=== PATIENT | female | born 1955 | race African-American/Black ===

== ENCOUNTER 2019-02-20 11:12 | Inpatient (IN) ==
[2019-02-20 11:51] LABS: Basophils % 0.6 % (0.0-0.8); Eosinophils # 0.1 10*3/uL (0.0-0.87); Eosinophils % 1.1 % (0.00-10.9); Hematocrit 28.6 VOL% (35.7-47.0); Hemoglobin 8.7 GM/DL (12.0-16.0); Immature Granulocytes % 0.4 %; Immature Granulocytes Absolute 0.02 #; Lymphocytes % 20.2 % (21.3-54.2); Mean Corpuscular HGB Conc 30.4 GM/DL (32-36); Mean Corpuscular Volume 77.7 FL (87-102); Mean Platelet Volume 9.8 FL (9.6-12.0); Monocytes % 18.1 % (1.7-12.7); Neutrophils % 59.6 % (38.7-73.9); Platelet Count 237 T/CUMM (130-400); Red Blood Count 3.68 MC/CUMM (3.8-5.5); Red Cell Distribution Width 20.5 % (9.3-17.3); White Blood Count 4.8 T/CUMM (4-12)
[2019-02-20 11:59] LABS: INR 1.2; PT Patient Result 12.9 SECS (9.6-12.2)
[2019-02-20 12:14] LABS: Band Neutrophils 3 % (0-10); Eosinophils 3 % (0-10); Lymphocytes 20 % (20-55); Segmented Neutrophils 52 % (50-85); Total Cells Counted 100
[2019-02-20 12:15] LABS: Anisocytosis 1+; Hypochromasia 1+; Platelet Estimate Normal; Polychromasia Slight
[2019-02-20 12:29] LABS: Albumin 2.3 G/DL (3.4-5.0); Bilirubin,Total 0.6 MG/DL (0.2-1.0); Calcium 8.1 MG/DL (8.5-10.1); Total Protein 8.6 G/DL (6.4-8.3)
[2019-02-20] MEDS ORDERED: FUROSEMIDE 100 MG/10 ML VIAL IV STA (12:47)
[2019-02-20] MEDS ORDERED: DEXTROSE 10% 25 GM/250 ML BAG IV PRN (15:52)
[2019-02-20] MEDS ORDERED: GLUCAGON 1 MG VIAL IM PRN (15:52)
[2019-02-20] MEDS: INSULIN REGULAR 100 UNIT/ML SUBCUT SCH ×2 (17:59→20:15)
[2019-02-20] MEDS: ENOXAPARIN 40 MG/0.4 ML SYRINGE SUBCUT SCH (20:15)
[2019-02-20] MEDS: LATANOPROST 0.005% OPH SOLN 2.5 ML BOTTLE BOTH EYES SCH (20:18)
[2019-02-20] MEDS ORDERED: FUROSEMIDE 20 MG/2 ML VIAL IV SCH (21:00)
[2019-02-21 05:44] LABS: Basophils % 0.4 % (0.0-0.8); Eosinophils # 0.1 10*3/uL (0.0-0.87); Eosinophils % 2.1 % (0.00-10.9); Hematocrit 29.2 VOL% (35.7-47.0); Hemoglobin 8.6 GM/DL (12.0-16.0); Immature Granulocytes % 0.4 %; Immature Granulocytes Absolute 0.02 #; Lymphocytes # 0.9 10*3/uL (1.4-4.0); Lymphocytes % 15.7 % (21.3-54.2); Mean Corpuscular HGB Conc 29.5 GM/DL (32-36); Mean Platelet Volume 10.1 FL (9.6-12.0); Monocytes % 14.8 % (1.7-12.7); Neutrophils % 66.6 % (38.7-73.9); Platelet Count 222 T/CUMM (130-400); Red Blood Count 3.79 MC/CUMM (3.8-5.5); Red Cell Distribution Width 19.9 % (9.3-17.3); White Blood Count 5.6 T/CUMM (4-12)
[2019-02-21 06:21] LABS: Albumin 2.4 G/DL (3.4-5.0); Bilirubin,Total 0.7 MG/DL (0.2-1.0); Calcium 8.9 MG/DL (8.5-10.1); Osmolality,Calculated 273.7 MOS/KG (273-304)
[2019-02-21] MEDS ORDERED: NON-FORMULARY MEDICATION (Glimepiride 1 MG) PO SCH (08:00)
[2019-02-21] MEDS: INSULIN REGULAR 100 UNIT/ML SUBCUT SCH ×4 (08:24→20:11)
[2019-02-21] MEDS: CARVEDILOL 12.5 MG TABLET PO SCH ×2 (08:59→17:17)
[2019-02-21] MEDS: PANTOPRAZOLE 40 MG TABLET PO SCH (08:59)
[2019-02-21] MEDS ORDERED: CARVEDILOL 6.25 MG TABLET PO SCH (09:00)
[2019-02-21] MEDS ORDERED: TOFACITINIB 11 MG PO SCH (09:00)
[2019-02-21] MEDS ORDERED: CARVEDILOL 25 MG TABLET PO SCH (09:00)
[2019-02-21] MEDS: FUROSEMIDE 20 MG/2 ML VIAL IV SCH (11:20)
[2019-02-21] MEDS: ENOXAPARIN 40 MG/0.4 ML SYRINGE SUBCUT SCH (20:32)
[2019-02-21] MEDS: LATANOPROST 0.005% OPH SOLN 2.5 ML BOTTLE BOTH EYES SCH (20:33)
[2019-02-22 05:14] LABS: Basophils % 0.2 % (0.0-0.8); Eosinophils # 0.2 10*3/uL (0.0-0.87); Eosinophils % 3.4 % (0.00-10.9); Hematocrit 29.6 VOL% (35.7-47.0); Hemoglobin 8.7 GM/DL (12.0-16.0); Immature Granulocytes % 0.2 %; Immature Granulocytes Absolute 0.01 #; Lymphocytes # 1.2 10*3/uL (1.4-4.0); Lymphocytes % 26.4 % (21.3-54.2); Mean Corpuscular HGB Conc 29.4 GM/DL (32-36); Mean Corpuscular Volume 78.1 FL (87-102); Mean Platelet Volume 10.3 FL (9.6-12.0); Monocytes % 18.6 % (1.7-12.7); NRBC # 0.02 10*3/uL; Neutrophils % 51.2 % (38.7-73.9); Platelet Count 216 T/CUMM (130-400); Red Blood Count 3.79 MC/CUMM (3.8-5.5); Red Cell Distribution Width 19.9 % (9.3-17.3); White Blood Count 4.4 T/CUMM (4-12)
[2019-02-22 05:38] LABS: Albumin 2.4 G/DL (3.4-5.0); Bilirubin,Total 0.8 MG/DL (0.2-1.0); Calcium 8.7 MG/DL (8.5-10.1); Total Protein 9.2 G/DL (6.4-8.3)
[2019-02-22 05:39] LABS: Eosinophils 5 % (0-10); Hypochromasia 1+; Lymphocytes 20 % (20-55); Platelet Estimate Adequate; Segmented Neutrophils 56 % (50-85); Target Cells Few; Total Cells Counted 100
[2019-02-22] MEDS: INSULIN REGULAR 100 UNIT/ML SUBCUT SCH ×2 (07:16→12:02)
[2019-02-22] MEDS: CARVEDILOL 12.5 MG TABLET PO SCH (08:22)
[2019-02-22] MEDS: PANTOPRAZOLE 40 MG TABLET PO SCH (08:22)
[2019-02-22] MEDS: FUROSEMIDE 20 MG/2 ML VIAL IV SCH (08:22)
[2019-02-22 11:48] VITALS: BP 131/78
== END 2019-02-22 15:07 | disposition home or self-care (01) | DRG 292 ==
LOC: EDBD → EDUNIT# → N.ED 11:12 → N.EDINP 11:12 → SUPCPDRO 14:41 → SUATTDRO 14:41 → OBSVTOIN 14:41 → N.2W 16:20 → N.4E 18:08
PROVIDERS: ADMIT Internal Medicine; ATTEND Emergency Medicine

== ENCOUNTER 2019-03-03 10:01 | Inpatient (IN) ==
[2019-03-03] MEDS ORDERED: FUROSEMIDE 100 MG/10 ML VIAL IV STA (10:59)
[2019-03-03 11:39] LABS: Basophils % 0.2 % (0.0-0.8); Eosinophils # 0.1 10*3/uL (0.0-0.87); Eosinophils % 1.5 % (0.00-10.9); Hematocrit 30.3 VOL% (35.7-47.0); Immature Granulocytes % 0.4 %; Immature Granulocytes Absolute 0.02 #; Lymphocytes # 0.4 10*3/uL (1.4-4.0); Lymphocytes % 8.6 % (21.3-54.2); Mean Corpuscular HGB Conc 29.7 GM/DL (32-36); Mean Corpuscular Volume 79.1 FL (87-102); Mean Platelet Volume 10.5 FL (9.6-12.0); NRBC # 0.04 10*3/uL; Neutrophils % 77.3 % (38.7-73.9); Platelet Count 213 T/CUMM (130-400); Red Blood Count 3.83 MC/CUMM (3.8-5.5); Red Cell Distribution Width 21.2 % (9.3-17.3); White Blood Count 4.7 T/CUMM (4-12)
[2019-03-03 11:48] LABS: INR 1.1; Partial Thromboplastin Time 24.6 SECS (20.8-36.0)
[2019-03-03 11:54] LABS: ABG Base Excess 4.6 MMOL/L (-2.5-2.5); ABG HCO3 28.6 MMOL/L (20-26); ABG Oxygen Saturation 99.9 % (95-100); ABG PH 7.222 (7.35-7.45); ABG TCO2 32.6 MMOL/L (23-27)
[2019-03-03 11:56] LABS: ABG PCO2 84.3 MM HG (35-48)
[2019-03-03 11:58] LABS: Albumin 2.4 G/DL (3.4-5.0); Bilirubin,Total 0.5 MG/DL (0.2-1.0); Calcium 8.4 MG/DL (8.5-10.1); Osmolality,Calculated 272.1 MOS/KG (273-304); Total Protein 8.6 G/DL (6.4-8.3)
[2019-03-03] MEDS: ALBUTEROL 2.5 MG/3 ML NEB RESP TX SCH ×3 (12:02→12:14)
[2019-03-03 12:13] LABS: Apearance,Urine CLEAR (Clear); Bilirubin,Urine Negative (Negative); Blood, Urine Negative (Negative); Glucose,Urine (UA) Negative (Negative); Hyaline Casts,Urine 4 /LPF (0-3); Ketones,Urine Negative (Negative); Mucus,Urine Occasional /LPF (Occasional); Nitrite,Urine Negative (Negative); Protein,Urine 100 MG/DL; RBC,Urine <1 /HPF (0-4); Squamous Epithelial Cell,Urine Occasional /HPF (0-10); Urine Color Yellow (Yellow); Urine Specific Gravity 1.014 (1.001-1.035)
[2019-03-03 12:32] LABS: Barbiturates Screen,Urine Negative (Negative); Benzodiazepines Screen,Urine Negative (Negative); Cannabinoid Screen,Urine Negative (Negative); Opiate Screen,Urine Negative (Negative); Phencyclidine Screen,Urine Negative (Negative)
[2019-03-03] MEDS ORDERED: ACETAMINOPHEN 325 MG TABLET PO PRN (13:45)
[2019-03-03] MEDS ORDERED: MAGNESIUM SULF RIDER 2 GM in PREMIX 1 EACH IV PRN (13:45)
[2019-03-03] MEDS ORDERED: ONDANSETRON 4 MG/2 ML VIAL IV PRN (13:45)
[2019-03-03] MEDS ORDERED: MAGNESIUM SULF RIDER 4 GM in PREMIX 1 EACH IV PRN (13:45)
[2019-03-03] MEDS ORDERED: PANTOPRAZOLE 40 MG TABLET PO SCH (14:00)
[2019-03-03] MEDS ORDERED: carvediloL 3.125 MG TABLET PO SCH (14:00)
[2019-03-03] MEDS ORDERED: GLUCAGON 1 MG VIAL IM PRN (14:31)
[2019-03-03] MEDS: SPIRONOLACTONE 25 MG TABLET PO SCH ×2 (14:54→21:20)
[2019-03-03] MEDS: ASPIRIN CHEW 81 MG TABLET PO SCH (14:56)
[2019-03-03] MEDS: ENOXAPARIN 40 MG/0.4 ML SYRINGE SUBCUT SCH (14:57)
[2019-03-03] MEDS: FUROSEMIDE 40 MG/4 ML VIAL IV SCH ×2 (14:57→21:18)
[2019-03-03] MEDS ORDERED: ETOMIDATE 20 MG/10 ML VIAL IV ONE ×3 (15:46→15:59)
[2019-03-03] MEDS ORDERED: SUCCINYLCHOLINE 200 MG/10 ML VIAL ONE (15:47)
[2019-03-03] MEDS ORDERED: MIDAZOLAM 100 MG in SODIUM CHLORIDE 0.9% 80 ML IV PRN (16:21)
[2019-03-03] MEDS ORDERED: INSULIN REGULAR 100 UNIT/ML SUBCUT SCH (16:30)
[2019-03-03] MEDS ORDERED: NOREPINEPHRINE 8 MG in SODIUM CHLORIDE 0.9% 242 ML IV PRN (16:33)
[2019-03-03] MEDS: PROPOFOL 1,000 MG/100 ML BOTTLE IV SCH ×3 (16:35→21:15)
[2019-03-03 18:20] LABS: ABG Base Excess 11.7 MMOL/L (-2.5-2.5); ABG HCO3 35.5 MMOL/L (20-26); ABG PCO2 32.3 MM HG (35-48); ABG TCO2 31.5 MMOL/L (23-27); Allen Test Positive; Pt O2 Delivery Device Ventilator
[2019-03-03 18:22] LABS: ABG PH 7.627 (7.35-7.45)
[2019-03-03] MEDS ORDERED: SUCCINYLCHOLINE 200 MG/10 ML VIAL IV ONE (18:24)
[2019-03-03 19:53] LABS: ABG HCO3 33.8 MMOL/L (20-26); ABG Oxygen Saturation 99.6 % (95-100); ABG PCO2 32.2 MM HG (35-48); ABG TCO2 29.5 MMOL/L (23-27); Allen Test Positive; Pt O2 Delivery Device Ventilator
[2019-03-03 19:58] LABS: ABG PH 7.606 (7.35-7.45)
[2019-03-03] MEDS: LATANOPROST 0.005% OPH SOLN 2.5 ML BOTTLE BOTH EYES SCH (21:28)
[2019-03-04] MEDS ORDERED: DEXTROSE 10% 250 ML IV ONE ×2 (00:03→02:03)
[2019-03-04] MEDS: DEXTROSE 10% 25 GM/250 ML BAG IV PRN ×3 (00:05→03:05)
[2019-03-04] MEDS: INSULIN REGULAR 100 UNIT/ML SUBCUT SCH ×5 (00:19→23:53)
[2019-03-04] MEDS: PROPOFOL 1,000 MG/100 ML BOTTLE IV SCH ×6 (00:32→23:50)
[2019-03-04] MEDS ORDERED: methylPREDNISolone SOD SUC 125 MG/2 ML VIAL IV ONE (02:59)
[2019-03-04 03:35] LABS: Basophils % 0.4 % (0.0-0.8); Eosinophils # 0.1 10*3/uL (0.0-0.87); Hematocrit 26.8 VOL% (35.7-47.0); Hemoglobin 8.2 GM/DL (12.0-16.0); Immature Granulocytes % 0.4 %; Immature Granulocytes Absolute 0.02 #; Lymphocytes # 0.2 10*3/uL (1.4-4.0); Lymphocytes % 4.8 % (21.3-54.2); Mean Corpuscular HGB Conc 30.6 GM/DL (32-36); Mean Corpuscular Volume 75.5 FL (87-102); Mean Platelet Volume 10.9 FL (9.6-12.0); NRBC # 0.05 10*3/uL; Neutrophils % 83.4 % (38.7-73.9); Platelet Count 180 T/CUMM (130-400); Red Blood Count 3.55 MC/CUMM (3.8-5.5); Red Cell Distribution Width 20.3 % (9.3-17.3)
[2019-03-04 03:45] LABS: ABG Base Excess 12.1 MMOL/L (-2.5-2.5); ABG HCO3 34.7 MMOL/L (20-26); ABG Oxygen Saturation 27.9 % (95-100); ABG PCO2 58.8 MM HG (35-48); ABG PH 7.424 (7.35-7.45); ABG TCO2 36.2 MMOL/L (23-27); Allen Test Positive; Pt O2 Delivery Device Ventilator
[2019-03-04 03:48] LABS: Calcium 8.3 MG/DL (8.5-10.1); Osmolality,Calculated 282.7 MOS/KG (273-304)
[2019-03-04 03:56] LABS: ABG PO2 21.5 MM HG (80-95)
[2019-03-04 04:01] LABS: Eosinophils 1 % (0-10); Lymphocytes 3 % (20-55); Platelet Estimate Adequate; Segmented Neutrophils 88 % (50-85); Total Cells Counted 100
[2019-03-04 04:02] LABS: Hypochromasia 1+
[2019-03-04 04:08] LABS: Risk Ratio 2.24
[2019-03-04] MEDS: POTASSIUM CHLORIDE 20 MEQ TABLET PO PRN ×4 (04:11→22:07)
[2019-03-04] MEDS: FUROSEMIDE 40 MG/4 ML VIAL IV SCH ×2 (05:47→17:25)
[2019-03-04 05:56] LABS: ABG Base Excess 12.3 MMOL/L (-2.5-2.5); ABG HCO3 36.1 MMOL/L (20-26); ABG PCO2 40.5 MM HG (35-48); ABG PH 7.555 (7.35-7.45); ABG TCO2 33.1 MMOL/L (23-27)
[2019-03-04] MEDS ORDERED: TOFACITINIB 11 MG PO SCH (09:00)
[2019-03-04] MEDS: ASPIRIN CHEW 81 MG TABLET PO SCH (09:02)
[2019-03-04] MEDS: LANSOPRAZOLE ODT 30 MG TABLET PER TUBE SCH (09:02)
[2019-03-04] MEDS: SPIRONOLACTONE 25 MG TABLET PO SCH ×2 (09:02→22:07)
[2019-03-04 11:28] LABS: ABG Base Excess 10.8 MMOL/L (-2.5-2.5); ABG HCO3 34.5 MMOL/L (20-26); ABG PCO2 38.5 MM HG (35-48); ABG PH 7.555 (7.35-7.45); ABG PO2 89.3 MM HG (80-95); ABG TCO2 31.1 MMOL/L (23-27); Pt O2 Delivery Device Ventilator
[2019-03-04] MEDS: FLUCONAZOLE INJ 200 MG in PREMIX 1 EACH IV SCH (12:23)
[2019-03-04] MEDS ORDERED: DEXTROSE 50% 25 GM/50 ML VIAL IV PRN (14:04)
[2019-03-04] MEDS: ENOXAPARIN 40 MG/0.4 ML SYRINGE SUBCUT SCH (14:58)
[2019-03-04] MEDS: LATANOPROST 0.005% OPH SOLN 2.5 ML BOTTLE BOTH EYES SCH (22:08)
[2019-03-05] MEDS: PROPOFOL 1,000 MG/100 ML BOTTLE IV SCH ×5 (03:11→22:40)
[2019-03-05 03:57] LABS: ABG Base Excess 9.7 MMOL/L (-2.5-2.5); ABG HCO3 33.3 MMOL/L (20-26); ABG Oxygen Saturation 98.1 % (95-100); ABG PCO2 41.1 MM HG (35-48); ABG PH 7.527 (7.35-7.45); ABG PO2 114.9 MM HG (80-95); ABG TCO2 34.6 MMOL/L (23-27); Allen Test Positive; Pt O2 Delivery Device Ventilator
[2019-03-05 04:04] LABS: Eosinophils % 0.2 % (0.00-10.9); Hematocrit 27.5 VOL% (35.7-47.0); Hemoglobin 8.6 GM/DL (12.0-16.0); Immature Granulocytes % 0.2 %; Immature Granulocytes Absolute 0.01 #; Lymphocytes # 0.3 10*3/uL (1.4-4.0); Lymphocytes % 4.7 % (21.3-54.2); Mean Corpuscular HGB Conc 31.3 GM/DL (32-36); Mean Corpuscular Volume 73.9 FL (87-102); Mean Platelet Volume 11.2 FL (9.6-12.0); Monocytes % 11.4 % (1.7-12.7); NRBC # 0.06 10*3/uL; Neutrophils % 83.5 % (38.7-73.9); Platelet Count 220 T/CUMM (130-400); Red Blood Count 3.72 MC/CUMM (3.8-5.5); Red Cell Distribution Width 20.7 % (9.3-17.3); White Blood Count 6.4 T/CUMM (4-12)
[2019-03-05 04:11] LABS: Calcium 8.9 MG/DL (8.5-10.1); Osmolality,Calculated 284.3 MOS/KG (273-304)
[2019-03-05 04:28] LABS: Lymphocytes 2 % (20-55); Segmented Neutrophils 91 % (50-85); Total Cells Counted 100
[2019-03-05 04:29] LABS: Hypochromasia 1+; Platelet Estimate Adequate; Target Cells Few
[2019-03-05] MEDS: POTASSIUM CHLORIDE 20 MEQ TABLET PO PRN (06:00)
[2019-03-05] MEDS: FUROSEMIDE 40 MG/4 ML VIAL IV SCH (06:02)
[2019-03-05] MEDS: INSULIN REGULAR 100 UNIT/ML SUBCUT SCH ×3 (06:12→17:47)
[2019-03-05] MEDS: SPIRONOLACTONE 25 MG TABLET PO SCH ×2 (09:55→21:14)
[2019-03-05] MEDS: ASPIRIN CHEW 81 MG TABLET PO SCH (09:55)
[2019-03-05] MEDS: LANSOPRAZOLE ODT 30 MG TABLET PER TUBE SCH (09:55)
[2019-03-05] MEDS: ENOXAPARIN 40 MG/0.4 ML SYRINGE SUBCUT SCH (12:21)
[2019-03-05] MEDS: FLUCONAZOLE INJ 200 MG in PREMIX 1 EACH IV SCH (13:39)
[2019-03-05] MEDS: LATANOPROST 0.005% OPH SOLN 2.5 ML BOTTLE BOTH EYES SCH (21:15)
[2019-03-06] MEDS: INSULIN REGULAR 100 UNIT/ML SUBCUT SCH ×4 (00:52→18:35)
[2019-03-06 04:26] LABS: Basophils % 0.3 % (0.0-0.8); Eosinophils # 0.3 10*3/uL (0.0-0.87); Eosinophils % 3.4 % (0.00-10.9); Hematocrit 26.9 VOL% (35.7-47.0); Hemoglobin 8.2 GM/DL (12.0-16.0); Immature Granulocytes % 0.4 %; Immature Granulocytes Absolute 0.03 #; Lymphocytes # 0.4 10*3/uL (1.4-4.0); Lymphocytes % 4.9 % (21.3-54.2); Mean Corpuscular HGB Conc 30.5 GM/DL (32-36); Mean Corpuscular Volume 74.3 FL (87-102); Mean Platelet Volume 10.8 FL (9.6-12.0); Monocytes % 10.4 % (1.7-12.7); NRBC # 0.03 10*3/uL; Neutrophils % 80.6 % (38.7-73.9); Platelet Count 210 T/CUMM (130-400); Red Blood Count 3.62 MC/CUMM (3.8-5.5); Red Cell Distribution Width 20.5 % (9.3-17.3); White Blood Count 7.3 T/CUMM (4-12)
[2019-03-06 04:47] LABS: Calcium 8.5 MG/DL (8.5-10.1); Osmolality,Calculated 282.5 MOS/KG (273-304)
[2019-03-06] MEDS: PROPOFOL 1,000 MG/100 ML BOTTLE IV SCH ×4 (05:00→22:35)
[2019-03-06 05:16] LABS: ABG Base Excess 5.1 MMOL/L (-2.5-2.5); ABG HCO3 29.1 MMOL/L (20-26); ABG Oxygen Saturation 98.4 % (95-100); ABG PCO2 50.4 MM HG (35-48); ABG PH 7.395 (7.35-7.45); ABG TCO2 28.7 MMOL/L (23-27); Allen Test Positive; Pt O2 Delivery Device Ventilator
[2019-03-06 06:17] LABS: Anisocytosis 1+; Eosinophils 8 % (0-10); Hypochromasia 1+; Lymphocytes 3 % (20-55); Segmented Neutrophils 81 % (50-85); Target Cells 2+; Total Cells Counted 100
[2019-03-06 06:18] LABS: Platelet Estimate Adequate; Schistocytes Few
[2019-03-06] MEDS: ASPIRIN CHEW 81 MG TABLET PO SCH (08:38)
[2019-03-06] MEDS: LANSOPRAZOLE ODT 30 MG TABLET PER TUBE SCH (08:38)
[2019-03-06] MEDS: SPIRONOLACTONE 25 MG TABLET PO SCH ×2 (08:38→21:38)
[2019-03-06] MEDS ORDERED: FUROSEMIDE 40 MG TABLET PO SCH (09:00)
[2019-03-06] MEDS: FLUCONAZOLE INJ 200 MG in PREMIX 1 EACH IV SCH (13:09)
[2019-03-06] MEDS: ENOXAPARIN 40 MG/0.4 ML SYRINGE SUBCUT SCH (13:09)
[2019-03-06] MEDS: FUROSEMIDE 40 MG/4 ML VIAL IV SCH (16:55)
[2019-03-06] MEDS: VANCOMYCIN INJ 1,500 MG in SODIUM CHLORIDE 0.9% 500 ML IV SCH (18:35)
[2019-03-06] MEDS: LATANOPROST 0.005% OPH SOLN 2.5 ML BOTTLE BOTH EYES SCH (21:39)
[2019-03-07] MEDS: INSULIN REGULAR 100 UNIT/ML SUBCUT SCH ×4 (02:51→17:43)
[2019-03-07 04:13] LABS: Basophils % 0.1 % (0.0-0.8); Eosinophils # 0.2 10*3/uL (0.0-0.87); Eosinophils % 2.3 % (0.00-10.9); Hematocrit 28.1 VOL% (35.7-47.0); Hemoglobin 8.6 GM/DL (12.0-16.0); Immature Granulocytes % 0.4 %; Immature Granulocytes Absolute 0.04 #; Lymphocytes # 0.4 10*3/uL (1.4-4.0); Lymphocytes % 4.3 % (21.3-54.2); Mean Corpuscular HGB Conc 30.6 GM/DL (32-36); Mean Corpuscular Volume 75.9 FL (87-102); Mean Platelet Volume 10.8 FL (9.6-12.0); Monocytes % 13.1 % (1.7-12.7); NRBC # 0.02 10*3/uL; Neutrophils % 79.8 % (38.7-73.9); Platelet Count 217 T/CUMM (130-400); Red Cell Distribution Width 20.7 % (9.3-17.3)
[2019-03-07 04:29] LABS: Calcium 8.2 MG/DL (8.5-10.1); Osmolality,Calculated 279.8 MOS/KG (273-304)
[2019-03-07 04:59] LABS: ABG Base Excess 3.4 MMOL/L (-2.5-2.5); ABG HCO3 27.5 MMOL/L (20-26); ABG Oxygen Saturation 99.1 % (95-100); ABG PCO2 46.5 MM HG (35-48); ABG PH 7.399 (7.35-7.45); ABG TCO2 26.7 MMOL/L (23-27); Allen Test Positive; Pt O2 Delivery Device Ventilator
[2019-03-07 05:28] LABS: Segmented Neutrophils 81 % (50-85); Total Cells Counted 100
[2019-03-07 05:34] LABS: Eosinophils 3 % (0-10); Lymphocytes 6 % (20-55); Platelet Estimate Normal
[2019-03-07] MEDS: SPIRONOLACTONE 25 MG TABLET PO SCH ×2 (09:56→21:22)
[2019-03-07] MEDS: LANSOPRAZOLE ODT 30 MG TABLET PER TUBE SCH (09:57)
[2019-03-07] MEDS: ASPIRIN CHEW 81 MG TABLET PO SCH (09:57)
[2019-03-07] MEDS: FUROSEMIDE 40 MG/4 ML VIAL IV SCH ×2 (09:58→18:35)
[2019-03-07] MEDS ORDERED: RACEPINEPHRINE 0.5 ML NEB RESP TX ONE (11:27)
[2019-03-07] MEDS ORDERED: methylPREDNISolone SOD SUC 125 MG/2 ML VIAL IV ONE (11:33)
[2019-03-07] MEDS ORDERED: methylPREDNISolone SOD SUC 125 MG/2 ML VIAL ONE (11:33)
[2019-03-07] MEDS ORDERED: VECURONIUM 10 MG VIAL IV ONE ×2 (11:50)
[2019-03-07] MEDS ORDERED: PROPOFOL 200 MG/20 ML VIAL IV ONE (11:50)
[2019-03-07] MEDS ORDERED: ETOMIDATE 20 MG/10 ML VIAL IV ONE (11:51)
[2019-03-07] MEDS: methylPREDNISolone SOD SUC 40 MG/1 ML VIAL IV SCH ×2 (13:32→18:47)
[2019-03-07] MEDS: FLUCONAZOLE INJ 200 MG in PREMIX 1 EACH IV SCH (13:40)
[2019-03-07] MEDS: ENOXAPARIN 40 MG/0.4 ML SYRINGE SUBCUT SCH (15:11)
[2019-03-07] MEDS: PROPOFOL 1,000 MG/100 ML BOTTLE IV SCH ×2 (17:21→22:48)
[2019-03-07] MEDS: VANCOMYCIN INJ 1,500 MG in SODIUM CHLORIDE 0.9% 500 ML IV SCH (18:35)
[2019-03-07] MEDS: LATANOPROST 0.005% OPH SOLN 2.5 ML BOTTLE BOTH EYES SCH (21:22)
[2019-03-08] MEDS: INSULIN REGULAR 100 UNIT/ML SUBCUT SCH ×4 (00:27→18:25)
[2019-03-08] MEDS: methylPREDNISolone SOD SUC 40 MG/1 ML VIAL IV SCH ×3 (00:27→12:18)
[2019-03-08] MEDS: FUROSEMIDE 40 MG/4 ML VIAL IV SCH ×3 (02:27→18:20)
[2019-03-08 04:41] LABS: Basophils % 0.1 % (0.0-0.8); Hematocrit 27.7 VOL% (35.7-47.0); Hemoglobin 9.1 GM/DL (12.0-16.0); Immature Granulocytes % 0.3 %; Immature Granulocytes Absolute 0.03 #; Lymphocytes # 0.5 10*3/uL (1.4-4.0); Lymphocytes % 4.2 % (21.3-54.2); Mean Corpuscular HGB Conc 32.9 GM/DL (32-36); Mean Corpuscular Volume 73.3 FL (87-102); Mean Platelet Volume 11.1 FL (9.6-12.0); Monocytes % 5.5 % (1.7-12.7); Neutrophils % 89.9 % (38.7-73.9); Platelet Count 217 T/CUMM (130-400); Red Blood Count 3.78 MC/CUMM (3.8-5.5); Red Cell Distribution Width 20.6 % (9.3-17.3); White Blood Count 11.5 T/CUMM (4-12)
[2019-03-08] MEDS: PROPOFOL 1,000 MG/100 ML BOTTLE IV SCH ×4 (05:00→20:14)
[2019-03-08 05:04] LABS: ABG Base Excess 6.7 MMOL/L (-2.5-2.5); ABG HCO3 30.5 MMOL/L (20-26); ABG Oxygen Saturation 98.2 % (95-100); ABG PCO2 39.3 MM HG (35-48); ABG PH 7.496 (7.35-7.45); ABG PO2 95.5 MM HG (80-95); Pt O2 Delivery Device Ventilator
[2019-03-08 05:13] LABS: Hypochromasia 1+; Lymphocytes 4 % (20-55); Platelet Estimate Adequate; Segmented Neutrophils 94 % (50-85); Total Cells Counted 100
[2019-03-08 05:41] LABS: Calcium 8.5 MG/DL (8.5-10.1); Osmolality,Calculated 285.4 MOS/KG (273-304)
[2019-03-08 06:57] LABS: Prealbumin 22.1 MG/DL (20-40)
[2019-03-08] MEDS: POTASSIUM CHLORIDE 20 MEQ/15 ML UDCUP PER TUBE SCH ×3 (09:43→18:25)
[2019-03-08] MEDS: ASPIRIN CHEW 81 MG TABLET PO SCH (09:43)
[2019-03-08] MEDS: SPIRONOLACTONE 25 MG TABLET PO SCH ×2 (09:43→21:31)
[2019-03-08] MEDS: LANSOPRAZOLE ODT 30 MG TABLET PER TUBE SCH (09:44)
[2019-03-08] MEDS: ALBUTEROL/IPRATROPIUM 3 ML NEB RESP TX SCH ×2 (12:25→20:10)
[2019-03-08] MEDS: ENOXAPARIN 40 MG/0.4 ML SYRINGE SUBCUT SCH (15:22)
[2019-03-08] MEDS: methylPREDNISolone SOD SUC 125 MG/2 ML VIAL IV SCH (18:25)
[2019-03-08] MEDS: MEROPENEM 500 MG in SODIUM CHLORIDE 0.9% 100 ML IV SCH ×2 (18:25→21:30)
[2019-03-08] MEDS: LATANOPROST 0.005% OPH SOLN 2.5 ML BOTTLE BOTH EYES SCH (21:44)
[2019-03-09] MEDS: INSULIN REGULAR 100 UNIT/ML SUBCUT SCH ×4 (00:28→18:16)
[2019-03-09] MEDS: PROPOFOL 1,000 MG/100 ML BOTTLE IV SCH ×5 (00:32→21:10)
[2019-03-09] MEDS: ALBUTEROL/IPRATROPIUM 3 ML NEB RESP TX SCH ×4 (00:50→19:44)
[2019-03-09] MEDS ORDERED: FUROSEMIDE 20 MG/2 ML VIAL ONE (02:16)
[2019-03-09] MEDS: FUROSEMIDE 40 MG/4 ML VIAL IV SCH ×3 (02:17→17:19)
[2019-03-09 03:37] LABS: ABG Base Excess 10.8 MMOL/L (-2.5-2.5); ABG HCO3 34.6 MMOL/L (20-26); ABG Oxygen Saturation 98.6 % (95-100); ABG PH 7.526 (7.35-7.45); ABG TCO2 31.8 MMOL/L (23-27); Allen Test Positive; Pt O2 Delivery Device Ventilator
[2019-03-09] MEDS: MEROPENEM 500 MG in SODIUM CHLORIDE 0.9% 100 ML IV SCH ×4 (04:30→21:09)
[2019-03-09] MEDS: methylPREDNISolone SOD SUC 125 MG/2 ML VIAL IV SCH ×2 (04:31→15:12)
[2019-03-09 05:09] LABS: Hematocrit 28.1 VOL% (35.7-47.0); Hemoglobin 8.7 GM/DL (12.0-16.0); Immature Granulocytes % 0.4 %; Immature Granulocytes Absolute 0.04 #; Lymphocytes # 0.4 10*3/uL (1.4-4.0); Lymphocytes % 3.7 % (21.3-54.2); Mean Corpuscular Volume 73.6 FL (87-102); Mean Platelet Volume 10.8 FL (9.6-12.0); Monocytes % 7.4 % (1.7-12.7); NRBC # 0.02 10*3/uL; Neutrophils % 88.5 % (38.7-73.9); Platelet Count 275 T/CUMM (130-400); Red Blood Count 3.82 MC/CUMM (3.8-5.5); Red Cell Distribution Width 20.7 % (9.3-17.3); White Blood Count 11.3 T/CUMM (4-12)
[2019-03-09 05:30] LABS: Lymphocytes 4 % (20-55); Segmented Neutrophils 93 % (50-85); Total Cells Counted 100
[2019-03-09 05:31] LABS: Hypochromasia 1+; Platelet Estimate Adequate; Target Cells Few
[2019-03-09 05:38] LABS: Calcium 8.9 MG/DL (8.5-10.1); Osmolality,Calculated 292.1 MOS/KG (273-304)
[2019-03-09] MEDS ORDERED: POTASSIUM CHLORIDE 20 MEQ/15 ML UDCUP PER TUBE PRN (06:43)
[2019-03-09] MEDS: SPIRONOLACTONE 25 MG TABLET PO SCH ×2 (08:50→21:10)
[2019-03-09] MEDS: LANSOPRAZOLE ODT 30 MG TABLET PER TUBE SCH (08:50)
[2019-03-09] MEDS: ASPIRIN CHEW 81 MG TABLET PO SCH (08:50)
[2019-03-09] MEDS: POTASSIUM CHLORIDE 20 MEQ TABLET PO PRN (08:50)
[2019-03-09] MEDS: POTASSIUM CHLORIDE 20 MEQ/15 ML UDCUP PER TUBE SCH ×3 (09:06→17:19)
[2019-03-09 10:57] LABS: ABG Base Excess 8.7 MMOL/L (-2.5-2.5); ABG HCO3 32.5 MMOL/L (20-26); ABG Oxygen Saturation 99.4 % (95-100); ABG PCO2 53.5 MM HG (35-48); ABG TCO2 31.8 MMOL/L (23-27); Pt O2 Delivery Device Ventilator
[2019-03-09] MEDS: MENTHOL/ZINC OXIDE OINT 71 GM JAR TOP SCH ×2 (13:32→21:10)
[2019-03-09] MEDS: ENOXAPARIN 40 MG/0.4 ML SYRINGE SUBCUT SCH (13:34)
[2019-03-09] MEDS: LATANOPROST 0.005% OPH SOLN 2.5 ML BOTTLE BOTH EYES SCH (21:10)
[2019-03-10] MEDS: INSULIN REGULAR 100 UNIT/ML SUBCUT SCH ×5 (00:40→23:40)
[2019-03-10] MEDS: ALBUTEROL/IPRATROPIUM 3 ML NEB RESP TX SCH ×4 (00:57→19:37)
[2019-03-10] MEDS: PROPOFOL 1,000 MG/100 ML BOTTLE IV SCH ×5 (01:17→18:24)
[2019-03-10] MEDS: FUROSEMIDE 40 MG/4 ML VIAL IV SCH ×3 (02:51→18:30)
[2019-03-10] MEDS: MEROPENEM 500 MG in SODIUM CHLORIDE 0.9% 100 ML IV SCH ×5 (04:43→21:47)
[2019-03-10] MEDS: methylPREDNISolone SOD SUC 125 MG/2 ML VIAL IV SCH (04:43)
[2019-03-10 05:03] LABS: Calcium 9.2 MG/DL (8.5-10.1); Osmolality,Calculated 297.8 MOS/KG (273-304)
[2019-03-10 08:53] LABS: ABG HCO3 35.8 MMOL/L (20-26); ABG Oxygen Saturation 98.2 % (95-100); ABG PH 7.362 (7.35-7.45); ABG TCO2 36.8 MMOL/L (23-27); Allen Test Positive; Pt O2 Delivery Device Ventilator
[2019-03-10 08:55] LABS: ABG PCO2 70.8 MM HG (35-48)
[2019-03-10] MEDS: MENTHOL/ZINC OXIDE OINT 71 GM JAR TOP SCH ×2 (09:12→20:21)
[2019-03-10] MEDS: SPIRONOLACTONE 25 MG TABLET PO SCH ×2 (09:12→20:21)
[2019-03-10] MEDS: ASPIRIN CHEW 81 MG TABLET PO SCH (09:12)
[2019-03-10] MEDS: LANSOPRAZOLE ODT 30 MG TABLET PER TUBE SCH (09:12)
[2019-03-10] MEDS: ENOXAPARIN 40 MG/0.4 ML SYRINGE SUBCUT SCH (14:32)
[2019-03-10] MEDS ORDERED: methylPREDNISolone SOD SUC 125 MG/2 ML VIAL IV SCH (16:00)
[2019-03-10] MEDS: methylPREDNISolone SOD SUC 40 MG/1 ML VIAL IV SCH (16:03)
[2019-03-10] MEDS: LATANOPROST 0.005% OPH SOLN 2.5 ML BOTTLE BOTH EYES SCH (20:21)
[2019-03-11] MEDS: PROPOFOL 1,000 MG/100 ML BOTTLE IV SCH ×3 (00:31→18:05)
[2019-03-11] MEDS: ALBUTEROL/IPRATROPIUM 3 ML NEB RESP TX SCH ×4 (00:35→19:56)
[2019-03-11] MEDS: FUROSEMIDE 40 MG/4 ML VIAL IV SCH ×3 (02:37→15:55)
[2019-03-11] MEDS: MEROPENEM 500 MG in SODIUM CHLORIDE 0.9% 100 ML IV SCH ×4 (03:01→22:30)
[2019-03-11] MEDS: methylPREDNISolone SOD SUC 40 MG/1 ML VIAL IV SCH ×2 (03:02→15:57)
[2019-03-11 04:42] LABS: ABG Base Excess 19.2 MMOL/L (-2.5-2.5); ABG HCO3 45.5 MMOL/L (20-26); ABG Oxygen Saturation 98.9 % (95-100); ABG PCO2 62.9 MM HG (35-48); ABG PH 7.477 (7.35-7.45); ABG PO2 148.9 MM HG (80-95); ABG TCO2 47.4 MMOL/L (23-27); Pt O2 Delivery Device Ventilator
[2019-03-11 05:00] LABS: Hematocrit 32.6 VOL% (35.7-47.0); Hemoglobin 9.8 GM/DL (12.0-16.0); Immature Granulocytes % 0.8 %; Immature Granulocytes Absolute 0.06 #; Lymphocytes # 0.5 10*3/uL (1.4-4.0); Lymphocytes % 5.9 % (21.3-54.2); Mean Corpuscular HGB Conc 30.1 GM/DL (32-36); Mean Corpuscular Volume 76.9 FL (87-102); Mean Platelet Volume 10.3 FL (9.6-12.0); Monocytes % 15.6 % (1.7-12.7); NRBC # 0.04 10*3/uL; Neutrophils % 77.7 % (38.7-73.9); Platelet Count 276 T/CUMM (130-400); Red Blood Count 4.24 MC/CUMM (3.8-5.5); Red Cell Distribution Width 20.7 % (9.3-17.3)
[2019-03-11 05:21] LABS: Calcium 9.4 MG/DL (8.5-10.1)
[2019-03-11] MEDS: INSULIN REGULAR 100 UNIT/ML SUBCUT SCH ×3 (05:28→17:58)
[2019-03-11 05:30] LABS: Hypochromasia 1+; Lymphocytes 8 % (20-55); Platelet Estimate Adequate; Segmented Neutrophils 78 % (50-85); Total Cells Counted 100
[2019-03-11] MEDS: ASPIRIN CHEW 81 MG TABLET PO SCH (08:50)
[2019-03-11] MEDS: SPIRONOLACTONE 25 MG TABLET PO SCH ×2 (08:50→21:54)
[2019-03-11] MEDS: LANSOPRAZOLE ODT 30 MG TABLET PER TUBE SCH (08:50)
[2019-03-11] MEDS: MENTHOL/ZINC OXIDE OINT 71 GM JAR TOP SCH ×2 (08:51→21:54)
[2019-03-11] MEDS: ENOXAPARIN 40 MG/0.4 ML SYRINGE SUBCUT SCH (15:55)
[2019-03-11] MEDS: LATANOPROST 0.005% OPH SOLN 2.5 ML BOTTLE BOTH EYES SCH (21:54)
[2019-03-12] MEDS: ALBUTEROL/IPRATROPIUM 3 ML NEB RESP TX SCH ×5 (00:14→23:45)
[2019-03-12] MEDS: INSULIN REGULAR 100 UNIT/ML SUBCUT SCH ×4 (00:20→18:25)
[2019-03-12] MEDS: methylPREDNISolone SOD SUC 40 MG/1 ML VIAL IV SCH ×2 (04:24→17:51)
[2019-03-12] MEDS: MEROPENEM 500 MG in SODIUM CHLORIDE 0.9% 100 ML IV SCH ×4 (04:24→22:00)
[2019-03-12 04:41] LABS: ABG Base Excess 12.9 MMOL/L (-2.5-2.5); ABG HCO3 36.7 MMOL/L (20-26)
[2019-03-12 04:48] LABS: Basophils % 0.1 % (0.0-0.8); Hemoglobin 10.3 GM/DL (12.0-16.0); Immature Granulocytes % 0.9 %; Immature Granulocytes Absolute 0.07 #; Lymphocytes # 0.8 10*3/uL (1.4-4.0); Mean Corpuscular HGB Conc 29.5 GM/DL (32-36); Mean Corpuscular Volume 77.7 FL (87-102); Mean Platelet Volume 10.5 FL (9.6-12.0); NRBC # 0.03 10*3/uL; Platelet Count 285 T/CUMM (130-400); Red Blood Count 4.49 MC/CUMM (3.8-5.5); White Blood Count 7.6 T/CUMM (4-12)
[2019-03-12 04:54] LABS: Hematocrit 34.9 VOL% (35.7-47.0)
[2019-03-12 04:56] LABS: Calcium 9.4 MG/DL (8.5-10.1); Osmolality,Calculated 292.3 MOS/KG (273-304)
[2019-03-12 05:00] LABS: Eosinophils 1 % (0-10); Hypochromasia Slight; Lymphocytes 7 % (20-55); Platelet Estimate Adequate; Polychromasia Few; Segmented Neutrophils 82 % (50-85); Target Cells Few; Total Cells Counted 100
[2019-03-12 05:00] LABS: ABG PCO2 75.6 MM HG (35-48)
[2019-03-12] MEDS: THEOPHYLLINE ER (24 HR) 400 MG CAPSULE PO SCH (09:05)
[2019-03-12] MEDS: ASPIRIN CHEW 81 MG TABLET PO SCH (09:06)
[2019-03-12] MEDS: MENTHOL/ZINC OXIDE OINT 71 GM JAR TOP SCH ×2 (09:06→21:59)
[2019-03-12] MEDS: LANSOPRAZOLE ODT 30 MG TABLET PER TUBE SCH (09:06)
[2019-03-12] MEDS: SPIRONOLACTONE 25 MG TABLET PO SCH ×2 (09:06→21:58)
[2019-03-12] MEDS: FUROSEMIDE 40 MG/4 ML VIAL IV SCH ×2 (09:09→09:20)
[2019-03-12] MEDS: ENOXAPARIN 40 MG/0.4 ML SYRINGE SUBCUT SCH (13:45)
[2019-03-12] MEDS: LATANOPROST 0.005% OPH SOLN 2.5 ML BOTTLE BOTH EYES SCH (22:00)
[2019-03-13] MEDS: INSULIN REGULAR 100 UNIT/ML SUBCUT SCH ×4 (01:12→17:50)
[2019-03-13] MEDS: methylPREDNISolone SOD SUC 40 MG/1 ML VIAL IV SCH (03:25)
[2019-03-13] MEDS: MEROPENEM 500 MG in SODIUM CHLORIDE 0.9% 100 ML IV SCH ×4 (03:25→21:03)
[2019-03-13 03:41] LABS: ABG Base Excess 8.1 MMOL/L (-2.5-2.5); ABG HCO3 31.9 MMOL/L (20-26); ABG Oxygen Saturation 97.2 % (95-100); ABG PCO2 66.4 MM HG (35-48); ABG PH 7.345 (7.35-7.45); ABG PO2 97.8 MM HG (80-95); ABG TCO2 32.7 MMOL/L (23-27); Allen Test Positive
[2019-03-13 05:50] LABS: Basophils % 0.1 % (0.0-0.8); Eosinophils % 0.1 % (0.00-10.9); Hemoglobin 11.4 GM/DL (12.0-16.0); Immature Granulocytes % 1.7 %; Immature Granulocytes Absolute 0.18 #; Lymphocytes # 0.8 10*3/uL (1.4-4.0); Lymphocytes % 7.1 % (21.3-54.2); Mean Corpuscular Volume 77.1 FL (87-102); Mean Platelet Volume 10.7 FL (9.6-12.0); Monocytes % 8.7 % (1.7-12.7); NRBC # 0.02 10*3/uL; Neutrophils % 82.3 % (38.7-73.9); Platelet Count 300 T/CUMM (130-400); Red Blood Count 4.93 MC/CUMM (3.8-5.5); White Blood Count 10.5 T/CUMM (4-12)
[2019-03-13 06:07] LABS: Calcium 9.7 MG/DL (8.5-10.1); Osmolality,Calculated 281.7 MOS/KG (273-304)
[2019-03-13] MEDS: ALBUTEROL/IPRATROPIUM 3 ML NEB RESP TX SCH ×3 (07:31→19:46)
[2019-03-13] MEDS: SPIRONOLACTONE 25 MG TABLET PO SCH ×2 (08:42→20:21)
[2019-03-13] MEDS: FUROSEMIDE 40 MG/4 ML VIAL IV SCH (08:42)
[2019-03-13] MEDS: THEOPHYLLINE ER (24 HR) 400 MG CAPSULE PO SCH (08:42)
[2019-03-13] MEDS: ASPIRIN CHEW 81 MG TABLET PO SCH (08:42)
[2019-03-13] MEDS: LANSOPRAZOLE ODT 30 MG TABLET PER TUBE SCH (08:42)
[2019-03-13] MEDS: acetaZOLAMIDE 250 MG TABLET PO SCH ×2 (09:57→20:20)
[2019-03-13] MEDS: MENTHOL/ZINC OXIDE OINT 71 GM JAR TOP SCH ×2 (12:39→20:20)
[2019-03-13] MEDS: ENOXAPARIN 40 MG/0.4 ML SYRINGE SUBCUT SCH (14:10)
[2019-03-13] MEDS: FUROSEMIDE 40 MG TABLET PO SCH (15:36)
[2019-03-13] MEDS: LATANOPROST 0.005% OPH SOLN 2.5 ML BOTTLE BOTH EYES SCH (20:20)
[2019-03-14] MEDS: INSULIN REGULAR 100 UNIT/ML SUBCUT SCH ×4 (00:08→18:24)
[2019-03-14] MEDS: ALBUTEROL/IPRATROPIUM 3 ML NEB RESP TX SCH ×4 (00:45→19:29)
[2019-03-14] MEDS: MEROPENEM 500 MG in SODIUM CHLORIDE 0.9% 100 ML IV SCH ×4 (04:25→21:22)
[2019-03-14 05:53] LABS: Basophils % 0.1 % (0.0-0.8); Eosinophils # 0.2 10*3/uL (0.0-0.87); Eosinophils % 1.4 % (0.00-10.9); Hematocrit 38.8 VOL% (35.7-47.0); Hemoglobin 11.6 GM/DL (12.0-16.0); Immature Granulocytes % 1.3 %; Immature Granulocytes Absolute 0.16 #; Mean Corpuscular HGB Conc 29.9 GM/DL (32-36); Mean Corpuscular Volume 75.9 FL (87-102); Mean Platelet Volume 11.2 FL (9.6-12.0); Monocytes % 9.5 % (1.7-12.7); NRBC # 0.02 10*3/uL; Neutrophils % 79.7 % (38.7-73.9); Platelet Count 314 T/CUMM (130-400); Red Blood Count 5.11 MC/CUMM (3.8-5.5); White Blood Count 11.9 T/CUMM (4-12)
[2019-03-14 06:11] LABS: Calcium 9.1 MG/DL (8.5-10.1); Osmolality,Calculated 279.8 MOS/KG (273-304)
[2019-03-14] MEDS: LEVOTHYROXINE 50 MCG TABLET PO SCH (06:31)
[2019-03-14] MEDS: SPIRONOLACTONE 25 MG TABLET PO SCH ×2 (08:31→20:33)
[2019-03-14] MEDS: acetaZOLAMIDE 250 MG TABLET PO SCH ×2 (08:31→20:33)
[2019-03-14] MEDS: FUROSEMIDE 40 MG TABLET PO SCH ×2 (08:31→16:03)
[2019-03-14] MEDS: predniSONE 20 MG TABLET PO SCH ×2 (08:31→20:32)
[2019-03-14] MEDS: THEOPHYLLINE ER (24 HR) 400 MG CAPSULE PO SCH (08:31)
[2019-03-14] MEDS: LANSOPRAZOLE ODT 30 MG TABLET PER TUBE SCH (08:31)
[2019-03-14] MEDS: POTASSIUM CHLORIDE 20 MEQ TABLET PO SCH ×4 (08:31→20:33)
[2019-03-14] MEDS: ASPIRIN CHEW 81 MG TABLET PO SCH (08:31)
[2019-03-14 08:58] LABS: ABG Base Excess 6.9 MMOL/L (-2.5-2.5); ABG HCO3 30.7 MMOL/L (20-26); ABG PCO2 61.4 MM HG (35-48); ABG PH 7.358 (7.35-7.45); ABG TCO2 30.7 MMOL/L (23-27)
[2019-03-14] MEDS: MENTHOL/ZINC OXIDE OINT 71 GM JAR TOP SCH ×2 (10:15→20:33)
[2019-03-14] MEDS: ENOXAPARIN 40 MG/0.4 ML SYRINGE SUBCUT SCH (14:07)
[2019-03-14] MEDS: LATANOPROST 0.005% OPH SOLN 2.5 ML BOTTLE BOTH EYES SCH (20:33)
[2019-03-15] MEDS: INSULIN REGULAR 100 UNIT/ML SUBCUT SCH ×5 (00:20→23:49)
[2019-03-15] MEDS: ALBUTEROL/IPRATROPIUM 3 ML NEB RESP TX SCH ×4 (00:38→18:55)
[2019-03-15] MEDS: MEROPENEM 500 MG in SODIUM CHLORIDE 0.9% 100 ML IV SCH ×2 (03:20→10:33)
[2019-03-15 06:01] LABS: Calcium 9.8 MG/DL (8.5-10.1); Osmolality,Calculated 274.2 MOS/KG (273-304)
[2019-03-15] MEDS: LEVOTHYROXINE 50 MCG TABLET PO SCH (06:32)
[2019-03-15] MEDS: THEOPHYLLINE ER (24 HR) 400 MG CAPSULE PO SCH (08:56)
[2019-03-15] MEDS: acetaZOLAMIDE 250 MG TABLET PO SCH ×2 (08:57→21:20)
[2019-03-15] MEDS: FUROSEMIDE 40 MG TABLET PO SCH ×2 (08:57→18:10)
[2019-03-15] MEDS: SPIRONOLACTONE 25 MG TABLET PO SCH ×2 (08:57→21:22)
[2019-03-15] MEDS: LANSOPRAZOLE ODT 30 MG TABLET PER TUBE SCH (08:57)
[2019-03-15] MEDS: predniSONE 20 MG TABLET PO SCH ×2 (08:57→21:20)
[2019-03-15] MEDS: ASPIRIN CHEW 81 MG TABLET PO SCH (08:57)
[2019-03-15] MEDS: MENTHOL/ZINC OXIDE OINT 71 GM JAR TOP SCH ×2 (10:33→21:20)
[2019-03-15] MEDS: NYSTATIN 500,000 UNIT/5 ML UDCUP SWISH/SWAL SCH ×4 (12:05→21:20)
[2019-03-15] MEDS: ENOXAPARIN 40 MG/0.4 ML SYRINGE SUBCUT SCH (14:58)
[2019-03-15] MEDS: LATANOPROST 0.005% OPH SOLN 2.5 ML BOTTLE BOTH EYES SCH (21:20)
[2019-03-16] MEDS: ALBUTEROL/IPRATROPIUM 3 ML NEB RESP TX SCH ×4 (00:25→20:26)
[2019-03-16] MEDS: INSULIN REGULAR 100 UNIT/ML SUBCUT SCH ×3 (05:45→17:17)
[2019-03-16] MEDS: LEVOTHYROXINE 50 MCG TABLET PO SCH (05:46)
[2019-03-16] MEDS: FUROSEMIDE 40 MG TABLET PO SCH ×2 (09:08→15:35)
[2019-03-16] MEDS: SPIRONOLACTONE 25 MG TABLET PO SCH ×2 (09:09→20:58)
[2019-03-16] MEDS: LANSOPRAZOLE ODT 30 MG TABLET PER TUBE SCH (09:09)
[2019-03-16] MEDS: THEOPHYLLINE ER (24 HR) 400 MG CAPSULE PO SCH (09:09)
[2019-03-16] MEDS: NYSTATIN 500,000 UNIT/5 ML UDCUP SWISH/SWAL SCH ×4 (09:09→20:58)
[2019-03-16] MEDS: MENTHOL/ZINC OXIDE OINT 71 GM JAR TOP SCH ×2 (09:09→20:58)
[2019-03-16] MEDS: predniSONE 20 MG TABLET PO SCH (09:09)
[2019-03-16] MEDS: ASPIRIN CHEW 81 MG TABLET PO SCH (09:09)
[2019-03-16] MEDS: acetaZOLAMIDE 250 MG TABLET PO SCH ×2 (09:09→20:58)
[2019-03-16] MEDS: ENOXAPARIN 40 MG/0.4 ML SYRINGE SUBCUT SCH (15:35)
[2019-03-16] MEDS: LATANOPROST 0.005% OPH SOLN 2.5 ML BOTTLE BOTH EYES SCH (20:58)
[2019-03-17] MEDS: INSULIN REGULAR 100 UNIT/ML SUBCUT SCH ×3 (00:30→12:52)
[2019-03-17] MEDS: ALBUTEROL/IPRATROPIUM 3 ML NEB RESP TX SCH ×3 (01:09→13:44)
[2019-03-17] MEDS: LEVOTHYROXINE 50 MCG TABLET PO SCH (06:20)
[2019-03-17] MEDS ORDERED: predniSONE 20 MG TABLET PO SCH (09:00)
[2019-03-17] MEDS: LANSOPRAZOLE ODT 30 MG TABLET PER TUBE SCH (09:01)
[2019-03-17] MEDS: ASPIRIN CHEW 81 MG TABLET PO SCH (09:01)
[2019-03-17] MEDS: SPIRONOLACTONE 25 MG TABLET PO SCH (09:01)
[2019-03-17] MEDS: MENTHOL/ZINC OXIDE OINT 71 GM JAR TOP SCH (09:02)
[2019-03-17] MEDS: acetaZOLAMIDE 250 MG TABLET PO SCH (09:02)
[2019-03-17] MEDS: FUROSEMIDE 40 MG TABLET PO SCH (09:02)
[2019-03-17] MEDS: NYSTATIN 500,000 UNIT/5 ML UDCUP SWISH/SWAL SCH ×2 (09:02→12:51)
[2019-03-17] MEDS: THEOPHYLLINE ER (24 HR) 400 MG CAPSULE PO SCH (09:05)
[2019-03-17 11:46] VITALS: BP 151/91
[2019-03-17] MEDS: ENOXAPARIN 40 MG/0.4 ML SYRINGE SUBCUT SCH (15:06)
== END 2019-03-17 15:07 | disposition home or self-care (01) | DRG 207 ==
LOC: N.ED 10:01 → SUATTDRO 13:44 → N.EDINP 13:44 → N.CC 14:41 → N.5E 03-12 14:04
PROVIDERS: ADMIT Internal Medicine; ATTEND Internal Medicine

== ENCOUNTER 2019-12-25 10:10 | Observation (INO) ==
[2019-12-25] MEDS ORDERED: MORPHINE 4 MG/1 ML VIAL IV ONE (10:29)
[2019-12-25] MEDS ORDERED: ONDANSETRON 4 MG/2 ML VIAL IV ONE (10:29)
[2019-12-25] MEDS ORDERED: ASPIRIN 325 MG TABLET PO STA (10:29)
[2019-12-25 10:37] LABS: Basophils # 0.1 10*3/uL (0.0-0.2); Basophils % 1.1 % (0.0-0.8); Eosinophils # 0.8 10*3/uL (0.0-0.87); Eosinophils % 17.9 % (0.00-10.9); Hematocrit 35.3 VOL% (35.7-47.0); Immature Granulocytes % 0.2 %; Immature Granulocytes Absolute 0.01 #; Lymphocytes # 0.3 10*3/uL (1.4-4.0); Lymphocytes % 7.2 % (21.3-54.2); Mean Corpuscular HGB Conc 31.2 GM/DL (32-36); Mean Corpuscular Volume 74.9 FL (87-102); Mean Platelet Volume 9.8 FL (9.6-12.0); Monocytes % 12.2 % (1.7-12.7); Neutrophils % 61.4 % (38.7-73.9); Platelet Count 166 T/CUMM (130-400); Red Blood Count 4.71 MC/CUMM (3.8-5.5); Red Cell Distribution Width 27.2 % (9.3-17.3); White Blood Count 4.6 T/CUMM (4-12)
[2019-12-25 10:48] LABS: PT Patient Result 11.2 SECS (9.8-11.9)
[2019-12-25 10:55] LABS: Eosinophils 27 % (0-10); Lymphocytes 5 % (20-55); Platelet Estimate Adequate; Segmented Neutrophils 61 % (50-85); Total Cells Counted 100
[2019-12-25 10:56] LABS: Hypochromasia 1+
[2019-12-25 10:58] LABS: Troponin I < 0.015 NG/ML (0.00-0.045)
[2019-12-25 11:03] LABS: Albumin 2.6 G/DL (3.4-5.0); Bilirubin,Total 0.5 MG/DL (0.2-1.0); Calcium 8.8 MG/DL (8.5-10.1); Osmolality,Calculated 252.1 MOS/KG (273-304); Total Protein 8.1 G/DL (6.4-8.3)
[2019-12-25] MEDS ORDERED: DEXTROSE 50% 25 GM/50 ML VIAL IV PRN (11:46)
[2019-12-25] MEDS ORDERED: ONDANSETRON 4 MG/2 ML VIAL IV PRN (11:46)
[2019-12-25] MEDS ORDERED: GLUCAGON 1 MG VIAL IM PRN (11:46)
[2019-12-25] MEDS ORDERED: PNEUMOCOCCAL VACCINE (13 VALENT) 0.5 ML SYRINGE IM ONE (13:56)
[2019-12-25] MEDS ORDERED: ALBUTEROL/IPRATROPIUM 3 ML NEB RESP TX PRN (15:00)
[2019-12-25] MEDS: carvediloL 6.25 MG TABLET PO SCH (16:39)
[2019-12-25] MEDS ORDERED: LATANOPROST 0.005% OPH SOLN 2.5 ML BOTTLE BOTH EYES SCH (21:00)
[2019-12-25] MEDS: PANTOPRAZOLE 20 MG TABLET PO SCH (22:17)
[2019-12-25] MEDS: SPIRONOLACTONE 25 MG TABLET PO SCH (22:17)
[2019-12-26 05:34] LABS: Basophils % 0.8 % (0.0-0.8); Eosinophils # 0.9 10*3/uL (0.0-0.87); Eosinophils % 17.4 % (0.00-10.9); Hematocrit 37.9 VOL% (35.7-47.0); Hemoglobin 11.8 GM/DL (12.0-16.0); Immature Granulocytes % 0.2 %; Immature Granulocytes Absolute 0.01 #; Lymphocytes # 0.3 10*3/uL (1.4-4.0); Lymphocytes % 4.9 % (21.3-54.2); Mean Corpuscular HGB Conc 31.1 GM/DL (32-36); Mean Corpuscular Volume 74.9 FL (87-102); Mean Platelet Volume 9.2 FL (9.6-12.0); Monocytes % 11.9 % (1.7-12.7); Neutrophils % 64.8 % (38.7-73.9); Platelet Count 267 T/CUMM (130-400); Red Blood Count 5.06 MC/CUMM (3.8-5.5); Red Cell Distribution Width 27.5 % (9.3-17.3); White Blood Count 5.3 T/CUMM (4-12)
[2019-12-26 06:04] LABS: Eosinophils 10 % (0-10); Hypochromasia 1+; Lymphocytes 2 % (20-55); Platelet Estimate Adequate; Segmented Neutrophils 75 % (50-85); Total Cells Counted 100
[2019-12-26 07:08] LABS: Calcium 8.9 MG/DL (8.5-10.1); Osmolality,Calculated 260.8 MOS/KG (273-304); Risk Ratio 2.28; Thyroid Stimulating Hormone 5.44 uIU/ml (0.358-3.74); VLDL CHOLESTEROL 15.8 MG/DL
[2019-12-26] MEDS: SPIRONOLACTONE 25 MG TABLET PO SCH (08:26)
[2019-12-26] MEDS: carvediloL 6.25 MG TABLET PO SCH (08:26)
[2019-12-26] MEDS: PANTOPRAZOLE 20 MG TABLET PO SCH (08:26)
[2019-12-26] MEDS ORDERED: ASPIRIN CHEW 81 MG TABLET PO SCH (09:00)
[2019-12-26] MEDS ORDERED: THEOPHYLLINE ER (24 HR) 400 MG CAPSULE PO SCH (09:00)
[2019-12-26] MEDS ORDERED: PANTOPRAZOLE 40 MG TABLET PO SCH (09:00)
[2019-12-26] MEDS ORDERED: TRIAMTERENE/HCTZ 37.5-25 MG TABLET PO SCH (09:00)
[2019-12-26 10:26] VITALS: BP 126/23
== END 2019-12-26 13:05 | disposition home or self-care (01) ==
LOC: EDUNIT# → EDBD → N.EDINP 10:10 → N.ED 10:10 → N.EDINP 13:22 → N.TELEN 13:45
PROVIDERS: ADMIT Internal Medicine; ATTEND Internal Medicine

== ENCOUNTER 2020-03-21 05:47 | Inpatient (IN) ==
[2020-03-21] MEDS ORDERED: DEXTROSE 50% 25 GM/50 ML VIAL IV STA ×2 (06:01→07:16)
[2020-03-21] MEDS ORDERED: DEXTROSE 50% 25 GM/50 ML SYRINGE IV ONE ×2 (06:01→07:12)
[2020-03-21 06:41] LABS: Basophils % 0.6 % (0.0-0.8); Eosinophils # 0.2 10*3/uL (0.0-0.87); Eosinophils % 3.2 % (0.00-10.9); Hematocrit 35.1 VOL% (35.7-47.0); Hemoglobin 11.6 GM/DL (12.0-16.0); Immature Granulocytes % 0.2 %; Immature Granulocytes Absolute 0.01 #; Lymphocytes # 0.4 10*3/uL (1.4-4.0); Lymphocytes % 8.1 % (21.3-54.2); Mean Platelet Volume 10.5 FL (9.6-12.0); Monocytes % 10.1 % (1.7-12.7); Neutrophils % 77.8 % (38.7-73.9); Platelet Count 201 T/CUMM (130-400); Red Blood Count 4.28 MC/CUMM (3.8-5.5); White Blood Count 5.3 T/CUMM (4-12)
[2020-03-21 06:59] LABS: Albumin 2.2 G/DL (3.4-5.0); Bilirubin,Total 1.4 MG/DL (0.2-1.0); Calcium 8.3 MG/DL (8.5-10.1); Total Protein 6.9 G/DL (6.4-8.3)
[2020-03-21 07:45] LABS: Amorphous Crystals,Urine Occasional /HPF (Few); Bacteria,Urine Occasional /HPF (Few); Bilirubin,Urine Negative (Negative); Blood, Urine Negative (Negative); Glucose,Urine (UA) Negative (Negative); Hyaline Casts,Urine 1 /LPF (0-3); Ketones,Urine Negative (Negative); Nitrite,Urine Negative (Negative); Protein,Urine 100 MG/DL; Squamous Epithelial Cell,Urine Occasional /HPF (0-10); Urine Appearance Slightly Hazy (Clear); Urine Color Yellow (Yellow); Urine Specific Gravity 1.009 (1.001-1.035)
[2020-03-21] MEDS ORDERED: DEXTROSE 50% 25 GM/50 ML VIAL IV PRN (08:16)
[2020-03-21] MEDS ORDERED: ACETAMINOPHEN 325 MG TABLET PO PRN (08:16)
[2020-03-21] MEDS ORDERED: GLUCAGON 1 MG VIAL IM PRN (08:16)
[2020-03-21] MEDS ORDERED: ONDANSETRON 4 MG/2 ML VIAL IV PRN (08:16)
[2020-03-21] MEDS ORDERED: MOISTURIZING CREAM (EUCERIN) 106 GM JAR TOP PRN (08:21)
[2020-03-21] MEDS: DEXTROSE 5% NACL 0.45% 1,000 ML IV SCH (08:30)
[2020-03-21] MEDS ORDERED: INFLUENZA VIRUS VACCINE 0.5 ML SYRINGE IM ONE (10:04)
[2020-03-21] MEDS: FUROSEMIDE 40 MG TABLET PO SCH ×2 (10:39→10:40)
[2020-03-21] MEDS: ASPIRIN CHEW 81 MG TABLET PO SCH (10:40)
[2020-03-21] MEDS: THEOPHYLLINE ER (24 HR) 400 MG CAPSULE PO SCH (11:37)
[2020-03-21] MEDS: CHLORHEXIDINE 0.12% ORAL RINSE 60 ML BOTTLE SWISH/SPIT SCH ×2 (11:37→22:42)
[2020-03-21] MEDS: FERROUS SULFATE 325 MG TABLET PO SCH (16:47)
[2020-03-21] MEDS: carvediloL 25 MG TABLET PO SCH (16:47)
[2020-03-21] MEDS: PANTOPRAZOLE 40 MG TABLET PO SCH (18:00)
[2020-03-21] MEDS: LATANOPROST 0.005% OPH SOLN 2.5 ML BOTTLE BOTH EYES SCH (21:10)
[2020-03-21] MEDS: SPIRONOLACTONE 25 MG TABLET PO SCH (21:10)
[2020-03-21] MEDS: ENOXAPARIN 40 MG/0.4 ML SYRINGE SUBCUT SCH (21:10)
[2020-03-22] MEDS: PANTOPRAZOLE 40 MG TABLET PO SCH ×2 (05:53→17:41)
[2020-03-22 05:55] LABS: Basophils % 0.8 % (0.0-0.8); Eosinophils # 0.2 10*3/uL (0.0-0.87); Eosinophils % 4.3 % (0.00-10.9); Hematocrit 33.3 VOL% (35.7-47.0); Hemoglobin 10.9 GM/DL (12.0-16.0); Immature Granulocytes % 0.2 %; Immature Granulocytes Absolute 0.01 #; Lymphocytes # 0.5 10*3/uL (1.4-4.0); Lymphocytes % 8.6 % (21.3-54.2); Mean Corpuscular HGB Conc 32.7 GM/DL (32-36); Mean Corpuscular Volume 81.4 FL (87-102); Mean Platelet Volume 10.1 FL (9.6-12.0); Monocytes % 9.2 % (1.7-12.7); Neutrophils % 76.9 % (38.7-73.9); Platelet Count 186 T/CUMM (130-400); Red Blood Count 4.09 MC/CUMM (3.8-5.5); Red Cell Distribution Width 17.2 % (9.3-17.3); White Blood Count 5.3 T/CUMM (4-12)
[2020-03-22 06:13] LABS: Calcium 8.4 MG/DL (8.5-10.1)
[2020-03-22] MEDS: CHLORHEXIDINE 0.12% ORAL RINSE 60 ML BOTTLE SWISH/SPIT SCH ×2 (08:08→22:08)
[2020-03-22] MEDS: ROSUVASTATIN 20 MG TABLET PO SCH (08:08)
[2020-03-22] MEDS: THEOPHYLLINE ER (24 HR) 400 MG CAPSULE PO SCH (08:08)
[2020-03-22] MEDS: FUROSEMIDE 40 MG/4 ML VIAL IV SCH (08:08)
[2020-03-22] MEDS: ASCORBIC ACID 500 MG TABLET PO SCH (08:09)
[2020-03-22] MEDS: carvediloL 25 MG TABLET PO SCH ×2 (08:09→16:39)
[2020-03-22] MEDS: DEXTROSE 5% NACL 0.45% 1,000 ML IV SCH (08:09)
[2020-03-22] MEDS: CHOLECALCIFEROL 1,000 UNIT TABLET PO SCH (08:09)
[2020-03-22] MEDS: SPIRONOLACTONE 25 MG TABLET PO SCH ×2 (08:09→22:08)
[2020-03-22] MEDS: FERROUS SULFATE 325 MG TABLET PO SCH ×2 (08:09→16:39)
[2020-03-22] MEDS: ASPIRIN CHEW 81 MG TABLET PO SCH (08:09)
[2020-03-22] MEDS ORDERED: SKIN HEALING OINT (AQUAPHOR) 50 GM TUBE TOP PRN (14:45)
[2020-03-22] MEDS: ENOXAPARIN 40 MG/0.4 ML SYRINGE SUBCUT SCH (22:09)
[2020-03-22] MEDS: LATANOPROST 0.005% OPH SOLN 2.5 ML BOTTLE BOTH EYES SCH (22:15)
[2020-03-23] MEDS: PANTOPRAZOLE 40 MG TABLET PO SCH ×2 (05:33→17:31)
[2020-03-23] MEDS: THEOPHYLLINE ER (24 HR) 400 MG CAPSULE PO SCH (08:28)
[2020-03-23] MEDS: carvediloL 25 MG TABLET PO SCH ×2 (08:28→17:31)
[2020-03-23] MEDS: ROSUVASTATIN 20 MG TABLET PO SCH (08:28)
[2020-03-23] MEDS: CHOLECALCIFEROL 1,000 UNIT TABLET PO SCH (08:28)
[2020-03-23] MEDS: FERROUS SULFATE 325 MG TABLET PO SCH ×2 (08:28→17:31)
[2020-03-23] MEDS: ASPIRIN CHEW 81 MG TABLET PO SCH (08:29)
[2020-03-23] MEDS: SPIRONOLACTONE 25 MG TABLET PO SCH ×2 (08:29→20:04)
[2020-03-23] MEDS: ASCORBIC ACID 500 MG TABLET PO SCH (08:29)
[2020-03-23] MEDS: FUROSEMIDE 40 MG/4 ML VIAL IV SCH (08:31)
[2020-03-23] MEDS: CHLORHEXIDINE 0.12% ORAL RINSE 60 ML BOTTLE SWISH/SPIT SCH ×2 (08:34→20:04)
[2020-03-23] MEDS: ENOXAPARIN 40 MG/0.4 ML SYRINGE SUBCUT SCH (20:04)
[2020-03-23] MEDS: LATANOPROST 0.005% OPH SOLN 2.5 ML BOTTLE BOTH EYES SCH (20:04)
[2020-03-23] MEDS ORDERED: FUROSEMIDE 40 MG/4 ML VIAL IV SCH (21:00)
[2020-03-24 05:10] LABS: Basophils % 0.5 % (0.0-0.8); Eosinophils # 0.2 10*3/uL (0.0-0.87); Hematocrit 30.3 VOL% (35.7-47.0); Hemoglobin 10.2 GM/DL (12.0-16.0); Immature Granulocytes % 0.2 %; Immature Granulocytes Absolute 0.01 #; Lymphocytes # 0.5 10*3/uL (1.4-4.0); Mean Corpuscular HGB Conc 33.7 GM/DL (32-36); Mean Corpuscular Volume 80.4 FL (87-102); Mean Platelet Volume 10.3 FL (9.6-12.0); Monocytes % 10.8 % (1.7-12.7); Neutrophils % 76.5 % (38.7-73.9); Platelet Count 171 T/CUMM (130-400); Red Blood Count 3.77 MC/CUMM (3.8-5.5); Red Cell Distribution Width 16.1 % (9.3-17.3); White Blood Count 5.8 T/CUMM (4-12)
[2020-03-24 05:28] LABS: Calcium 8.7 MG/DL (8.5-10.1); Osmolality,Calculated 269.4 MOS/KG (273-304)
[2020-03-24] MEDS: PANTOPRAZOLE 40 MG TABLET PO SCH ×2 (06:00→17:50)
[2020-03-24] MEDS: THEOPHYLLINE ER (24 HR) 400 MG CAPSULE PO SCH (09:53)
[2020-03-24] MEDS: ASPIRIN CHEW 81 MG TABLET PO SCH (09:53)
[2020-03-24] MEDS: carvediloL 25 MG TABLET PO SCH ×2 (09:53→17:15)
[2020-03-24] MEDS: CHLORHEXIDINE 0.12% ORAL RINSE 60 ML BOTTLE SWISH/SPIT SCH ×2 (09:53→21:15)
[2020-03-24] MEDS: CHOLECALCIFEROL 1,000 UNIT TABLET PO SCH (09:53)
[2020-03-24] MEDS: FERROUS SULFATE 325 MG TABLET PO SCH ×2 (09:53→17:16)
[2020-03-24] MEDS: ROSUVASTATIN 20 MG TABLET PO SCH (09:53)
[2020-03-24] MEDS: ASCORBIC ACID 500 MG TABLET PO SCH (09:53)
[2020-03-24] MEDS: SPIRONOLACTONE 25 MG TABLET PO SCH (09:53)
[2020-03-24] MEDS: SKIN HEALING OINT (AQUAPHOR) 50 GM TUBE TOP SCH ×2 (13:39→21:16)
[2020-03-24] MEDS: FUROSEMIDE 40 MG/4 ML VIAL IV SCH (17:15)
[2020-03-24] MEDS: ENOXAPARIN 40 MG/0.4 ML SYRINGE SUBCUT SCH (21:15)
[2020-03-24] MEDS: LATANOPROST 0.005% OPH SOLN 2.5 ML BOTTLE BOTH EYES SCH (21:22)
[2020-03-25 05:24] LABS: Basophils % 0.4 % (0.0-0.8); Eosinophils # 0.2 10*3/uL (0.0-0.87); Eosinophils % 5.1 % (0.00-10.9); Hemoglobin 9.9 GM/DL (12.0-16.0); Immature Granulocytes % 0.2 %; Immature Granulocytes Absolute 0.01 #; Lymphocytes # 0.4 10*3/uL (1.4-4.0); Lymphocytes % 8.7 % (21.3-54.2); Mean Platelet Volume 10.4 FL (9.6-12.0); Monocytes % 13.4 % (1.7-12.7); Neutrophils % 72.2 % (38.7-73.9); Platelet Count 161 T/CUMM (130-400); Red Blood Count 3.75 MC/CUMM (3.8-5.5); Red Cell Distribution Width 16.1 % (9.3-17.3); White Blood Count 4.5 T/CUMM (4-12)
[2020-03-25] MEDS: PANTOPRAZOLE 40 MG TABLET PO SCH (05:44)
[2020-03-25 05:46] LABS: Calcium 8.7 MG/DL (8.5-10.1); Osmolality,Calculated 262.7 MOS/KG (273-304)
[2020-03-25] MEDS: ASCORBIC ACID 500 MG TABLET PO SCH (08:47)
[2020-03-25] MEDS: carvediloL 25 MG TABLET PO SCH (08:47)
[2020-03-25] MEDS: THEOPHYLLINE ER (24 HR) 400 MG CAPSULE PO SCH (08:47)
[2020-03-25] MEDS: ASPIRIN CHEW 81 MG TABLET PO SCH (08:48)
[2020-03-25] MEDS: FUROSEMIDE 40 MG/4 ML VIAL IV SCH (08:48)
[2020-03-25] MEDS: CHOLECALCIFEROL 1,000 UNIT TABLET PO SCH (08:48)
[2020-03-25] MEDS: SKIN HEALING OINT (AQUAPHOR) 50 GM TUBE TOP SCH (08:48)
[2020-03-25] MEDS: ROSUVASTATIN 20 MG TABLET PO SCH (08:48)
[2020-03-25] MEDS: FERROUS SULFATE 325 MG TABLET PO SCH (08:48)
[2020-03-25] MEDS: CHLORHEXIDINE 0.12% ORAL RINSE 60 ML BOTTLE SWISH/SPIT SCH (11:19)
[2020-03-25 12:16] VITALS: BP 112/73
== END 2020-03-25 15:42 | disposition home or self-care (01) | DRG 637 ==
LOC: N.ED 05:47 → N.EDINP 08:16 → SUATTDRO 08:16 → N.EDINP 09:27 → N.5E 09:36
PROVIDERS: ADMIT Internal Medicine Geriatric Medicine; ATTEND Internal Medicine

== ENCOUNTER 2020-04-27 02:09 | Inpatient (IN) ==
[2020-04-27] MEDS ORDERED: MORPHINE 4 MG/1 ML VIAL IV STA (02:28)
[2020-04-27] MEDS ORDERED: ASPIRIN 325 MG TABLET PO STA (02:28)
[2020-04-27] MEDS ORDERED: ONDANSETRON 4 MG/2 ML VIAL IV STA (02:28)
[2020-04-27] MEDS ORDERED: FUROSEMIDE 100 MG/10 ML VIAL IV STA (02:28)
[2020-04-27 02:40] LABS: Basophils % 0.5 % (0.0-0.8); Eosinophils # 0.1 10*3/uL (0.0-0.87); Eosinophils % 1.4 % (0.00-10.9); Hematocrit 35.3 VOL% (35.7-47.0); Hemoglobin 11.5 GM/DL (12.0-16.0); Immature Granulocytes % 0.5 %; Immature Granulocytes Absolute 0.03 #; Lymphocytes # 0.8 10*3/uL (1.4-4.0); Lymphocytes % 12.7 % (21.3-54.2); Mean Corpuscular HGB Conc 32.6 GM/DL (32-36); Mean Corpuscular Volume 83.6 FL (87-102); Mean Platelet Volume 10.7 FL (9.6-12.0); Monocytes % 13.7 % (1.7-12.7); Neutrophils % 71.2 % (38.7-73.9); Platelet Count 186 T/CUMM (130-400); Red Blood Count 4.22 MC/CUMM (3.8-5.5); Red Cell Distribution Width 21.3 % (9.3-17.3); White Blood Count 5.9 T/CUMM (4-12)
[2020-04-27 02:45] LABS: INR 1.2; PT Patient Result 13.1 SECS (9.8-11.9)
[2020-04-27 02:52] LABS: Albumin 2.1 G/DL (3.4-5.0); Bilirubin,Total 0.9 MG/DL (0.2-1.0); Calcium 8.4 MG/DL (8.5-10.1); Osmolality,Calculated 270.8 MOS/KG (273-304); Total Protein 8.9 G/DL (6.4-8.3)
[2020-04-27] MEDS ORDERED: ENOXAPARIN 100 MG/ML SYRINGE SUBCUT STA (03:10)
[2020-04-27 03:23] LABS: Bacteria,Urine Occasional /HPF (Few); Bilirubin,Urine Negative (Negative); Blood, Urine Negative (Negative); Glucose,Urine (UA) Negative (Negative); Ketones,Urine Negative (Negative); Nitrite,Urine Negative (Negative); Protein,Urine 100 MG/DL; RBC,Urine 1 /HPF (0-4); Urine Appearance CLEAR (Clear); Urine Color Yellow (Yellow); Urine Specific Gravity 1.004 (1.001-1.035); Urine Urobilinogen < 2.0 EU/DL (0.2-1.0); WBC,Urine <1 /HPF (0-6)
[2020-04-27 03:32] LABS: Hypochromasia 2+; Platelet Estimate Normal; Polychromasia Few; Target Cells 1+
[2020-04-27 03:46] LABS: Ferritin 85.7 ng/ml (8-252)
[2020-04-27] MEDS ORDERED: ACETAMINOPHEN 325 MG TABLET PO PRN (04:22)
[2020-04-27] MEDS ORDERED: MAGNESIUM SULF RIDER 4 GM in PREMIX 1 EACH IV PRN (04:22)
[2020-04-27] MEDS ORDERED: GLUCAGON 1 MG VIAL IM PRN (04:22)
[2020-04-27] MEDS ORDERED: MAGNESIUM SULF RIDER 2 GM in PREMIX 1 EACH IV PRN (04:22)
[2020-04-27] MEDS ORDERED: DEXTROSE 50% 25 GM/50 ML VIAL IV PRN (04:22)
[2020-04-27] MEDS ORDERED: ONDANSETRON 4 MG/2 ML VIAL IV PRN (04:22)
[2020-04-27] MEDS ORDERED: POTASSIUM CHLORIDE 20 MEQ TABLET PO ONE (07:47)
[2020-04-27] MEDS: PANTOPRAZOLE 40 MG TABLET PO SCH (09:18)
[2020-04-27] MEDS: FUROSEMIDE 40 MG/4 ML VIAL IV SCH ×2 (09:18→16:19)
[2020-04-27] MEDS ORDERED: ROSUVASTATIN 20 MG TABLET PO SCH (09:30)
[2020-04-27] MEDS: carvediloL 25 MG TABLET PO SCH ×2 (09:41→20:09)
[2020-04-27] MEDS ORDERED: LORazepam 2 MG/1 ML VIAL IV ONE (09:51)
[2020-04-27] MEDS ORDERED: CLORAZEPATE 3.75 MG TABLET PO PRN (09:53)
[2020-04-27] MEDS: ENOXAPARIN 80 MG/0.8 ML SYRINGE SUBCUT SCH (17:03)
[2020-04-28 02:45] LABS: Calcium 8.2 MG/DL (8.5-10.1)
[2020-04-28 02:49] LABS: Albumin 1.8 G/DL (3.4-5.0); Bilirubin,Total 1.1 MG/DL (0.2-1.0); Calcium 8.1 MG/DL (8.5-10.1); Total Protein 8.5 G/DL (6.4-8.3)
[2020-04-28 02:54] LABS: Eosinophils # 0.2 10*3/uL (0.0-0.87); Eosinophils % 5.3 % (0.00-10.9); Hematocrit 33.9 VOL% (35.7-47.0); Hemoglobin 10.7 GM/DL (12.0-16.0); Immature Granulocytes % 0.5 %; Immature Granulocytes Absolute 0.02 #; Lymphocytes # 0.6 10*3/uL (1.4-4.0); Lymphocytes % 15.7 % (21.3-54.2); Mean Corpuscular HGB Conc 31.6 GM/DL (32-36); Mean Corpuscular Volume 86.7 FL (87-102); Mean Platelet Volume 10.5 FL (9.6-12.0); Monocytes % 19.8 % (1.7-12.7); Neutrophils % 57.7 % (38.7-73.9); Platelet Count 153 T/CUMM (130-400); Red Blood Count 3.91 MC/CUMM (3.8-5.5); Red Cell Distribution Width 21.7 % (9.3-17.3); White Blood Count 3.9 T/CUMM (4-12)
[2020-04-28] MEDS: ENOXAPARIN 80 MG/0.8 ML SYRINGE SUBCUT SCH ×2 (06:01→18:14)
[2020-04-28 06:56] LABS: Eosinophils 3 % (0-10); Lymphocytes 25 % (20-55); Total Cells Counted 100
[2020-04-28 06:57] LABS: Platelet Estimate Normal; Segmented Neutrophils 55 % (50-85)
[2020-04-28 06:58] LABS: Anisocytosis 1+; Hypochromasia 2+; Macrocytosis 1+; Ovalocytes 1+; Target Cells 2+
[2020-04-28] MEDS ORDERED: cefTRIAXone 1,000 MG in SYRINGE 1 EACH IV SCH (08:00)
[2020-04-28] MEDS ORDERED: POTASSIUM CHLORIDE 20 MEQ TABLET PO SCH (09:00)
[2020-04-28] MEDS: ASPIRIN CHEW 81 MG TABLET PO SCH (09:18)
[2020-04-28] MEDS: carvediloL 25 MG TABLET PO SCH (09:18)
[2020-04-28] MEDS: PANTOPRAZOLE 40 MG TABLET PO SCH (09:18)
[2020-04-28] MEDS: FUROSEMIDE 40 MG/4 ML VIAL IV SCH ×2 (09:21→17:00)
[2020-04-28] MEDS ORDERED: VANCOMYCIN INJ 1,000 MG in SODIUM CHLORIDE 0.9% 250 ML IV SCH (12:00)
[2020-04-28] MEDS ORDERED: VANCOMYCIN INJ 1,750 MG in SODIUM CHLORIDE 0.9% 500 ML IV SCH (13:00)
[2020-04-28] MEDS ORDERED: HYDROCORTISONE 2.5% CREAM 30 GM TUBE TOP PRN (22:48)
[2020-04-29] MEDS: carvediloL 25 MG TABLET PO SCH ×2 (00:17→09:43)
[2020-04-29] MEDS: ENOXAPARIN 80 MG/0.8 ML SYRINGE SUBCUT SCH (06:40)
[2020-04-29 07:25] LABS: Calcium 8.4 MG/DL (8.5-10.1); Osmolality,Calculated 267.1 MOS/KG (273-304)
[2020-04-29 08:32] VITALS: BP 112/56
[2020-04-29] MEDS: FUROSEMIDE 40 MG/4 ML VIAL IV SCH (09:43)
[2020-04-29] MEDS: ASPIRIN CHEW 81 MG TABLET PO SCH (09:43)
[2020-04-29] MEDS: PANTOPRAZOLE 40 MG TABLET PO SCH (09:47)
== END 2020-04-29 13:00 | disposition home health service (06) | DRG 293 ==
LOC: EDBD → EDUNIT# → N.ED 02:09 → N.TELEN 02:09 → SUATTDRO 04:22 → N.TELEN 05:28
PROVIDERS: ADMIT Internal Medicine; ATTEND Internal Medicine

== ENCOUNTER 2020-05-11 22:31 | Inpatient (IN) ==
[2020-05-11 23:39] LABS: Basophils % 0.3 % (0.0-0.8); Eosinophils # 0.1 10*3/uL (0.0-0.87); Eosinophils % 1.8 % (0.00-10.9); Hematocrit 35.9 VOL% (35.7-47.0); Hemoglobin 11.7 GM/DL (12.0-16.0); Immature Granulocytes % 0.9 %; Immature Granulocytes Absolute 0.03 #; Lymphocytes # 0.5 10*3/uL (1.4-4.0); Lymphocytes % 13.7 % (21.3-54.2); Mean Corpuscular HGB Conc 32.6 GM/DL (32-36); Mean Corpuscular Volume 84.1 FL (87-102); Mean Platelet Volume 9.7 FL (9.6-12.0); Monocytes % 12.6 % (1.7-12.7); NRBC # 0.05 10*3/uL; Neutrophils % 70.7 % (38.7-73.9); Platelet Count 154 T/CUMM (130-400); Red Blood Count 4.27 MC/CUMM (3.8-5.5); Red Cell Distribution Width 20.2 % (9.3-17.3); White Blood Count 3.4 T/CUMM (4-12)
[2020-05-11 23:45] LABS: INR 1.5
[2020-05-11 23:56] LABS: Albumin 1.6 G/DL (3.4-5.0); Bilirubin,Total 0.8 MG/DL (0.2-1.0); Calcium 7.9 MG/DL (8.5-10.1); Osmolality,Calculated 264.2 MOS/KG (273-304); Total Protein 8.3 G/DL (6.4-8.3)
[2020-05-12] MEDS ORDERED: FUROSEMIDE 40 MG/4 ML VIAL IV STA (00:08)
[2020-05-12] MEDS ORDERED: DEXTROSE 50% 25 GM/50 ML VIAL IV PRN (01:09)
[2020-05-12] MEDS ORDERED: ONDANSETRON 4 MG/2 ML VIAL IV PRN (01:09)
[2020-05-12] MEDS ORDERED: MAGNESIUM SULF RIDER 4 GM in PREMIX 1 EACH IV PRN (01:09)
[2020-05-12] MEDS ORDERED: ZALEPLON 5 MG CAPSULE PO PRN (01:09)
[2020-05-12] MEDS ORDERED: ACETAMINOPHEN 325 MG TABLET PO PRN (01:09)
[2020-05-12] MEDS ORDERED: MAGNESIUM SULF RIDER 2 GM in PREMIX 1 EACH IV PRN (01:09)
[2020-05-12] MEDS ORDERED: GLUCAGON 1 MG VIAL IM PRN (01:09)
[2020-05-12] MEDS ORDERED: SODIUM CHLORIDE 0.9% 100 ML IV ONE (02:04)
[2020-05-12 02:07] LABS: Ferritin 130.8 ng/ml (8-252)
[2020-05-12] MEDS: ENOXAPARIN 40 MG/0.4 ML SYRINGE SUBCUT SCH (02:49)
[2020-05-12] MEDS: cefTRIAXone 1,000 MG in SYRINGE 1 EACH IV SCH (02:49)
[2020-05-12 04:34] LABS: Anisocytosis 1+; Hypochromasia 2+; Macrocytosis 1+; Polychromasia Slight; Target Cells Few
[2020-05-12 04:35] LABS: Platelet Estimate Adequate
[2020-05-12] MEDS: INSULIN REGULAR 100 UNIT/ML SUBCUT SCH ×4 (07:54→20:47)
[2020-05-12] MEDS: ZINC GLUCONATE 50 MG TABLET PO SCH (08:40)
[2020-05-12] MEDS: ASCORBIC ACID 500 MG TABLET PO SCH ×2 (08:40→20:47)
[2020-05-12] MEDS: CHOLECALCIFEROL 1,000 UNIT TABLET PO SCH (08:40)
[2020-05-12] MEDS: FAMOTIDINE 20 MG TABLET PO SCH ×2 (08:40→20:46)
[2020-05-12] MEDS: CETIRIZINE 10 MG TABLET PO SCH (08:40)
[2020-05-12] MEDS: DEXAMETHASONE 4 MG/1 ML VIAL IV SCH (08:40)
[2020-05-12] MEDS: FUROSEMIDE 40 MG/4 ML VIAL IV SCH ×2 (08:43→16:57)
[2020-05-12 09:54] LABS: Basophils % 0.6 % (0.0-0.8); Eosinophils # 0.1 10*3/uL (0.0-0.87); Eosinophils % 1.6 % (0.00-10.9); Hematocrit 37.3 VOL% (35.7-47.0); Hemoglobin 11.8 GM/DL (12.0-16.0); Immature Granulocytes % 0.6 %; Immature Granulocytes Absolute 0.02 #; Lymphocytes # 0.4 10*3/uL (1.4-4.0); Lymphocytes % 13.4 % (21.3-54.2); Mean Corpuscular HGB Conc 31.6 GM/DL (32-36); Mean Corpuscular Volume 85.6 FL (87-102); Mean Platelet Volume 10.2 FL (9.6-12.0); Monocytes % 15.2 % (1.7-12.7); NRBC # 0.09 10*3/uL; Neutrophils % 68.6 % (38.7-73.9); Platelet Count 170 T/CUMM (130-400); Red Blood Count 4.36 MC/CUMM (3.8-5.5); Red Cell Distribution Width 20.6 % (9.3-17.3); White Blood Count 3.2 T/CUMM (4-12)
[2020-05-12 10:12] LABS: Albumin 1.6 G/DL (3.4-5.0); Bilirubin,Total 0.9 MG/DL (0.2-1.0); Calcium 8.1 MG/DL (8.5-10.1); Ferritin 146.2 ng/ml (8-252); Osmolality,Calculated 264.2 MOS/KG (273-304); Total Protein 8.8 G/DL (6.4-8.3)
[2020-05-12] MEDS: POTASSIUM CHLORIDE 20 MEQ TABLET PO PRN ×2 (12:46→17:24)
[2020-05-12] MEDS: MELATONIN 3 MG TABLET PO PRN (20:46)
[2020-05-13] MEDS: cefTRIAXone 1,000 MG in SYRINGE 1 EACH IV SCH (02:53)
[2020-05-13] MEDS: ENOXAPARIN 40 MG/0.4 ML SYRINGE SUBCUT SCH (02:53)
[2020-05-13 04:13] LABS: Hematocrit 36.6 VOL% (35.7-47.0); Hemoglobin 11.7 GM/DL (12.0-16.0); Immature Granulocytes % 1.3 %; Immature Granulocytes Absolute 0.02 #; Lymphocytes # 0.4 10*3/uL (1.4-4.0); Lymphocytes % 27.8 % (21.3-54.2); Mean Corpuscular Volume 85.3 FL (87-102); Mean Platelet Volume 10.3 FL (9.6-12.0); Monocytes % 13.9 % (1.7-12.7); NRBC # 0.05 10*3/uL; Platelet Count 168 T/CUMM (130-400); Red Blood Count 4.29 MC/CUMM (3.8-5.5); Red Cell Distribution Width 20.8 % (9.3-17.3); White Blood Count 1.5 T/CUMM (4-12)
[2020-05-13 04:39] LABS: Calcium 7.8 MG/DL (8.5-10.1); Osmolality,Calculated 263.4 MOS/KG (273-304)
[2020-05-13] MEDS: FUROSEMIDE 40 MG/4 ML VIAL IV SCH ×2 (08:02→16:16)
[2020-05-13] MEDS: DEXAMETHASONE 4 MG/1 ML VIAL IV SCH (08:02)
[2020-05-13] MEDS: CHOLECALCIFEROL 1,000 UNIT TABLET PO SCH (08:03)
[2020-05-13] MEDS: FAMOTIDINE 20 MG TABLET PO SCH ×2 (08:03→20:53)
[2020-05-13] MEDS: CETIRIZINE 10 MG TABLET PO SCH (08:03)
[2020-05-13] MEDS: ZINC GLUCONATE 50 MG TABLET PO SCH (08:03)
[2020-05-13] MEDS: ASCORBIC ACID 500 MG TABLET PO SCH ×2 (08:03→20:53)
[2020-05-13] MEDS: INSULIN REGULAR 100 UNIT/ML SUBCUT SCH ×4 (08:09→20:54)
[2020-05-13 08:22] LABS: Hypochromasia 1+; Lymphocytes 15 % (20-55); Microcytosis 1+; Nucleated Red Blood Cells 5 (0-5); Platelet Estimate Normal; Segmented Neutrophils 72 % (50-85); Target Cells 2+; Total Cells Counted 100
[2020-05-13 08:23] LABS: Anisocytosis 1+; Polychromasia Slight
[2020-05-13] MEDS: carvediloL 25 MG TABLET PO SCH (16:16)
[2020-05-13] MEDS: SPIRONOLACTONE 25 MG TABLET PO SCH (20:53)
[2020-05-13] MEDS: LATANOPROST 0.005% OPH SOLN 2.5 ML BOTTLE BOTH EYES SCH (20:53)
[2020-05-13] MEDS: FERROUS SULFATE 325 MG TABLET PO SCH (20:53)
[2020-05-14] MEDS: ENOXAPARIN 40 MG/0.4 ML SYRINGE SUBCUT SCH (02:15)
[2020-05-14] MEDS: cefTRIAXone 1,000 MG in SYRINGE 1 EACH IV SCH (02:16)
[2020-05-14 06:31] LABS: Hematocrit 36.4 VOL% (35.7-47.0); Hemoglobin 11.5 GM/DL (12.0-16.0); Immature Granulocytes % 0.4 %; Immature Granulocytes Absolute 0.01 #; Lymphocytes # 0.5 10*3/uL (1.4-4.0); Lymphocytes % 20.7 % (21.3-54.2); Mean Corpuscular HGB Conc 31.6 GM/DL (32-36); Mean Corpuscular Volume 86.3 FL (87-102); Mean Platelet Volume 10.8 FL (9.6-12.0); Monocytes % 11.2 % (1.7-12.7); NRBC # 0.03 10*3/uL; Neutrophils % 67.7 % (38.7-73.9); Platelet Count 166 T/CUMM (130-400); Red Blood Count 4.22 MC/CUMM (3.8-5.5); Red Cell Distribution Width 20.8 % (9.3-17.3); White Blood Count 2.3 T/CUMM (4-12)
[2020-05-14 06:53] LABS: Calcium 8.4 MG/DL (8.5-10.1); Osmolality,Calculated 265.2 MOS/KG (273-304)
[2020-05-14 07:42] LABS: Anisocytosis Slight; Band Neutrophils 2 % (0-10); Hypochromasia Slight; Lymphocytes 17 % (20-55); Nucleated Red Blood Cells 3 (0-5); Platelet Estimate Normal; Segmented Neutrophils 69 % (50-85); Total Cells Counted 100
[2020-05-14 07:43] LABS: Target Cells 3+
[2020-05-14] MEDS: INSULIN REGULAR 100 UNIT/ML SUBCUT SCH ×4 (08:42→20:32)
[2020-05-14] MEDS: ASCORBIC ACID 500 MG TABLET PO SCH ×2 (10:30→20:00)
[2020-05-14] MEDS: CETIRIZINE 10 MG TABLET PO SCH (10:30)
[2020-05-14] MEDS: ZINC GLUCONATE 50 MG TABLET PO SCH (10:30)
[2020-05-14] MEDS: FERROUS SULFATE 325 MG TABLET PO SCH ×2 (10:30→20:00)
[2020-05-14] MEDS: DEXAMETHASONE 4 MG/1 ML VIAL IV SCH (10:30)
[2020-05-14] MEDS: FUROSEMIDE 40 MG/4 ML VIAL IV SCH ×2 (10:30→16:45)
[2020-05-14] MEDS: FAMOTIDINE 20 MG TABLET PO SCH ×2 (10:30→20:00)
[2020-05-14] MEDS: carvediloL 25 MG TABLET PO SCH ×2 (10:30→16:45)
[2020-05-14] MEDS: ROSUVASTATIN 20 MG TABLET PO SCH (10:30)
[2020-05-14] MEDS: CHOLECALCIFEROL 1,000 UNIT TABLET PO SCH (10:30)
[2020-05-14] MEDS: SPIRONOLACTONE 25 MG TABLET PO SCH ×2 (10:30→20:00)
[2020-05-14] MEDS: LATANOPROST 0.005% OPH SOLN 2.5 ML BOTTLE BOTH EYES SCH (20:00)
[2020-05-14] MEDS: MELATONIN 3 MG TABLET PO PRN (20:00)
[2020-05-15] MEDS: cefTRIAXone 1,000 MG in SYRINGE 1 EACH IV SCH (00:30)
[2020-05-15] MEDS: ENOXAPARIN 40 MG/0.4 ML SYRINGE SUBCUT SCH (00:30)
[2020-05-15] MEDS ORDERED: AZITHROMYCIN 250 MG TABLET PO SCH (01:30)
[2020-05-15 04:01] LABS: Hematocrit 35.9 VOL% (35.7-47.0); Hemoglobin 11.3 GM/DL (12.0-16.0); Immature Granulocytes % 0.4 %; Immature Granulocytes Absolute 0.01 #; Lymphocytes # 0.5 10*3/uL (1.4-4.0); Lymphocytes % 18.4 % (21.3-54.2); Mean Corpuscular HGB Conc 31.5 GM/DL (32-36); Mean Corpuscular Volume 86.1 FL (87-102); Mean Platelet Volume 10.9 FL (9.6-12.0); Monocytes % 11.1 % (1.7-12.7); NRBC # 0.02 10*3/uL; Neutrophils % 70.1 % (38.7-73.9); Platelet Count 199 T/CUMM (130-400); Red Blood Count 4.17 MC/CUMM (3.8-5.5); Red Cell Distribution Width 20.4 % (9.3-17.3); White Blood Count 2.6 T/CUMM (4-12)
[2020-05-15 04:25] LABS: Hypochromasia 1+; Lymphocytes 12 % (20-55); Platelet Estimate Adequate; Segmented Neutrophils 83 % (50-85); Total Cells Counted 100
[2020-05-15 04:33] LABS: Osmolality,Calculated 269.1 MOS/KG (273-304)
[2020-05-15] MEDS: INSULIN REGULAR 100 UNIT/ML SUBCUT SCH ×2 (07:38→11:38)
[2020-05-15] MEDS: FAMOTIDINE 20 MG TABLET PO SCH (08:45)
[2020-05-15] MEDS: ROSUVASTATIN 20 MG TABLET PO SCH (08:45)
[2020-05-15] MEDS: carvediloL 25 MG TABLET PO SCH (08:45)
[2020-05-15] MEDS: ZINC GLUCONATE 50 MG TABLET PO SCH (08:45)
[2020-05-15] MEDS: CHOLECALCIFEROL 1,000 UNIT TABLET PO SCH (08:45)
[2020-05-15] MEDS: CETIRIZINE 10 MG TABLET PO SCH (08:46)
[2020-05-15] MEDS: SPIRONOLACTONE 25 MG TABLET PO SCH (08:46)
[2020-05-15] MEDS: FERROUS SULFATE 325 MG TABLET PO SCH (08:46)
[2020-05-15] MEDS: ASCORBIC ACID 500 MG TABLET PO SCH (08:46)
[2020-05-15] MEDS: FUROSEMIDE 40 MG/4 ML VIAL IV SCH (08:49)
[2020-05-15] MEDS: DEXAMETHASONE 4 MG/1 ML VIAL IV SCH (08:51)
[2020-05-15 11:46] VITALS: BP 111/64
== END 2020-05-15 13:00 | disposition home or self-care (01) | DRG 177 ==
LOC: EDBD → EDUNIT# → N.ED 22:31 → SUATTDRO 05-12 01:09 → N.EDINP 05-12 01:09 → N.2E 05-12 02:25
PROVIDERS: ADMIT Internal Medicine; ATTEND Internal Medicine

== ENCOUNTER 2020-07-01 10:28 | Inpatient (IN) ==
[2020-07-01 11:06] LABS: Basophils % 0.7 % (0.0-0.8); Eosinophils # 0.1 10*3/uL (0.0-0.87); Hematocrit 35.2 VOL% (35.7-47.0); Hemoglobin 10.8 GM/DL (12.0-16.0); Immature Granulocytes % 0.4 %; Immature Granulocytes Absolute 0.02 #; Lymphocytes # 0.4 10*3/uL (1.4-4.0); Lymphocytes % 8.2 % (21.3-54.2); Mean Corpuscular HGB Conc 30.7 GM/DL (32-36); Mean Corpuscular Volume 88.9 FL (87-102); Mean Platelet Volume 10.5 FL (9.6-12.0); Monocytes % 15.6 % (1.7-12.7); Neutrophils % 72.1 % (38.7-73.9); Platelet Count 205 T/CUMM (130-400); Red Blood Count 3.96 MC/CUMM (3.8-5.5); Red Cell Distribution Width 16.5 % (9.3-17.3); White Blood Count 4.6 T/CUMM (4-12)
[2020-07-01] MEDS ORDERED: FUROSEMIDE 40 MG/4 ML VIAL IV STA (11:07)
[2020-07-01 11:14] LABS: INR 1.3; PT Patient Result 13.5 SECS (9.8-11.9)
[2020-07-01 11:25] LABS: Eosinophils 1 % (0-10); Hypochromasia 1+; Lymphocytes 4 % (20-55); Microcytosis 1+; Platelet Estimate Adequate; Segmented Neutrophils 85 % (50-85); Total Cells Counted 100
[2020-07-01 11:26] LABS: Albumin 2.2 G/DL (3.4-5.0); Bilirubin,Total 1.2 MG/DL (0.2-1.0); Calcium 8.7 MG/DL (8.5-10.1); Potassium 4.7 MMOL/L (3.5-5.1)
[2020-07-01] MEDS ORDERED: ALBUTEROL 2.5 MG/3 ML NEB RESP TX PRN (12:41)
[2020-07-01] MEDS ORDERED: DEXTROSE 50% 25 GM/50 ML VIAL IV PRN (12:45)
[2020-07-01] MEDS ORDERED: GLUCAGON 1 MG VIAL IM PRN (12:45)
[2020-07-01 12:59] LABS: ABG Base Excess 5.4 MMOL/L (-2.5-2.5); ABG HCO3 29.2 MMOL/L (20-26); ABG Oxygen Saturation 93.2 % (95-100); ABG PH 7.331 (7.35-7.45); ABG PO2 77.9 MM HG (80-95)
[2020-07-01] MEDS: ALBUTEROL/IPRATROPIUM 3 ML NEB RESP TX SCH ×2 (13:11→19:55)
[2020-07-01 13:25] LABS: % Iron Saturation 13.5 % (18-50)
[2020-07-01 13:32] LABS: Folate 12.5 NG/ML (5.38-24.0)
[2020-07-01] MEDS: BUMETANIDE 1 MG/4 ML VIAL IV SCH ×2 (14:27→20:41)
[2020-07-01] MEDS: methylPREDNISolone SOD SUC 125 MG/2 ML VIAL IV SCH ×2 (14:27→20:41)
[2020-07-01] MEDS: ENOXAPARIN 40 MG/0.4 ML SYRINGE SUBCUT SCH (14:28)
[2020-07-01 15:39] LABS: Free T4 (Free Thyroxine) 0.91 NG/DL (0.76-1.46)
[2020-07-01] MEDS ORDERED: INSULIN LISPRO 100 UNIT/ML SUBCUT SCH (18:00)
[2020-07-01] MEDS: INSULIN LISPRO 100 UNIT/ML SUBCUT SCH (19:33)
[2020-07-01] MEDS: LATANOPROST 0.005% OPH SOLN 2.5 ML BOTTLE BOTH EYES SCH (20:41)
[2020-07-01] MEDS: FERROUS SULFATE 325 MG TABLET PO SCH (20:41)
[2020-07-01] MEDS: carvediloL 25 MG TABLET PO SCH (20:42)
[2020-07-01] MEDS: SPIRONOLACTONE 25 MG TABLET PO SCH (20:42)
[2020-07-02] MEDS: ALBUTEROL/IPRATROPIUM 3 ML NEB RESP TX SCH ×4 (00:30→19:42)
[2020-07-02] MEDS: INSULIN LISPRO 100 UNIT/ML SUBCUT SCH ×6 (00:40→20:49)
[2020-07-02 03:51] LABS: ABG Base Excess 5.7 MMOL/L (-2.5-2.5); ABG HCO3 29.5 MMOL/L (20-26); ABG Oxygen Saturation 95.1 % (95-100); ABG PH 7.274 (7.35-7.45); ABG PO2 89.7 MM HG (80-95); ABG TCO2 32.1 MMOL/L (23-27); Allen Test Positive; Pt O2 Delivery Device BIPAP
[2020-07-02 03:53] LABS: ABG PCO2 76.6 MM HG (35-48)
[2020-07-02 03:55] LABS: Hematocrit 38.7 VOL% (35.7-47.0); Hemoglobin 11.7 GM/DL (12.0-16.0); Immature Granulocytes % 0.9 %; Immature Granulocytes Absolute 0.02 #; Lymphocytes # 0.2 10*3/uL (1.4-4.0); Mean Corpuscular HGB Conc 30.2 GM/DL (32-36); Mean Corpuscular Volume 91.1 FL (87-102); Mean Platelet Volume 9.9 FL (9.6-12.0); Monocytes % 4.8 % (1.7-12.7); Neutrophils % 84.3 % (38.7-73.9); Platelet Count 209 T/CUMM (130-400); Red Blood Count 4.25 MC/CUMM (3.8-5.5); White Blood Count 2.3 T/CUMM (4-12)
[2020-07-02 04:25] LABS: Calcium 8.9 MG/DL (8.5-10.1); Osmolality,Calculated 276.7 MOS/KG (273-304); Potassium 4.3 MMOL/L (3.5-5.1); Risk Ratio 2.43
[2020-07-02] MEDS: methylPREDNISolone SOD SUC 125 MG/2 ML VIAL IV SCH ×3 (04:35→20:41)
[2020-07-02 05:59] LABS: Allen Test Positive; Pt O2 Delivery Device BIPAP
[2020-07-02 06:00] LABS: ABG Base Excess 5.5 MMOL/L (-2.5-2.5); ABG HCO3 29.4 MMOL/L (20-26); ABG PH 7.277 (7.35-7.45); ABG TCO2 31.8 MMOL/L (23-27)
[2020-07-02 06:01] LABS: ABG PCO2 75.6 MM HG (35-48)
[2020-07-02 07:03] VITALS: BP 141/90
[2020-07-02] MEDS: PANTOPRAZOLE 40 MG VIAL IV SCH (08:48)
[2020-07-02] MEDS: SPIRONOLACTONE 25 MG TABLET PO SCH ×2 (08:49→20:40)
[2020-07-02] MEDS: ZINC GLUCONATE 50 MG TABLET PO SCH (08:49)
[2020-07-02] MEDS: ROSUVASTATIN 20 MG TABLET PO SCH (08:49)
[2020-07-02] MEDS: ASPIRIN CHEW 81 MG TABLET PO SCH (08:49)
[2020-07-02] MEDS: CHOLECALCIFEROL 1,000 UNIT TABLET PO SCH (08:49)
[2020-07-02] MEDS: FERROUS SULFATE 325 MG TABLET PO SCH ×2 (08:49→20:40)
[2020-07-02] MEDS: BUMETANIDE 1 MG/4 ML VIAL IV SCH ×2 (08:49→20:40)
[2020-07-02] MEDS: carvediloL 25 MG TABLET PO SCH ×2 (08:49→20:40)
[2020-07-02 10:23] LABS: Allen Test Positive; Pt O2 Delivery Device BIPAP
[2020-07-02 10:24] LABS: ABG Base Excess 6.4 MMOL/L (-2.5-2.5); ABG HCO3 30.2 MMOL/L (20-26); ABG Oxygen Saturation 95.6 % (95-100); ABG PH 7.311 (7.35-7.45); ABG PO2 89.3 MM HG (80-95); ABG TCO2 31.7 MMOL/L (23-27)
[2020-07-02 10:28] LABS: ABG PCO2 69.9 MM HG (35-48)
[2020-07-02] MEDS: ENOXAPARIN 40 MG/0.4 ML SYRINGE SUBCUT SCH (14:10)
[2020-07-02] MEDS: LATANOPROST 0.005% OPH SOLN 2.5 ML BOTTLE BOTH EYES SCH (21:30)
[2020-07-03] MEDS: ALBUTEROL/IPRATROPIUM 3 ML NEB RESP TX SCH ×4 (01:11→19:13)
[2020-07-03] MEDS: INSULIN LISPRO 100 UNIT/ML SUBCUT SCH ×6 (01:41→20:28)
[2020-07-03] MEDS: hydrALAZINE 20 MG/1 ML VIAL IV PRN ×2 (02:06→16:21)
[2020-07-03 04:14] LABS: ABG Base Excess 10.3 MMOL/L (-2.5-2.5); ABG HCO3 33.9 MMOL/L (20-26); ABG Oxygen Saturation 88.8 % (95-100); ABG PCO2 63.6 MM HG (35-48); ABG PH 7.385 (7.35-7.45); ABG PO2 61.9 MM HG (80-95); ABG TCO2 33.9 MMOL/L (23-27)
[2020-07-03 04:30] LABS: Hematocrit 36.9 VOL% (35.7-47.0); Hemoglobin 11.4 GM/DL (12.0-16.0); Immature Granulocytes % 0.3 %; Immature Granulocytes Absolute 0.01 #; Lymphocytes # 0.3 10*3/uL (1.4-4.0); Lymphocytes % 7.9 % (21.3-54.2); Mean Corpuscular HGB Conc 30.9 GM/DL (32-36); Mean Corpuscular Volume 88.9 FL (87-102); Mean Platelet Volume 10.1 FL (9.6-12.0); Monocytes % 5.3 % (1.7-12.7); Neutrophils % 86.5 % (38.7-73.9); Platelet Count 231 T/CUMM (130-400); Red Blood Count 4.15 MC/CUMM (3.8-5.5); Red Cell Distribution Width 16.8 % (9.3-17.3); White Blood Count 3.2 T/CUMM (4-12)
[2020-07-03 04:56] LABS: Albumin 2.1 G/DL (3.4-5.0); Bilirubin,Total 0.8 MG/DL (0.2-1.0); Calcium 8.7 MG/DL (8.5-10.1); Osmolality,Calculated 279.8 MOS/KG (273-304); Potassium 4.4 MMOL/L (3.5-5.1); Total Protein 8.2 G/DL (5.0-7.5)
[2020-07-03] MEDS: methylPREDNISolone SOD SUC 125 MG/2 ML VIAL IV SCH (08:06)
[2020-07-03] MEDS: carvediloL 25 MG TABLET PO SCH ×2 (08:07→20:28)
[2020-07-03] MEDS: CHOLECALCIFEROL 1,000 UNIT TABLET PO SCH (08:07)
[2020-07-03] MEDS: ROSUVASTATIN 20 MG TABLET PO SCH (08:07)
[2020-07-03] MEDS: ZINC GLUCONATE 50 MG TABLET PO SCH (08:07)
[2020-07-03] MEDS: ASPIRIN CHEW 81 MG TABLET PO SCH (08:07)
[2020-07-03] MEDS: FERROUS SULFATE 325 MG TABLET PO SCH ×2 (08:07→20:28)
[2020-07-03] MEDS: SPIRONOLACTONE 25 MG TABLET PO SCH ×2 (08:07→20:28)
[2020-07-03] MEDS: BUMETANIDE 1 MG/4 ML VIAL IV SCH (08:08)
[2020-07-03] MEDS: PANTOPRAZOLE 40 MG VIAL IV SCH (08:08)
[2020-07-03] MEDS: ENOXAPARIN 40 MG/0.4 ML SYRINGE SUBCUT SCH (13:07)
[2020-07-03] MEDS ORDERED: SKIN HEALING OINT (AQUAPHOR) 50 GM TUBE TOP PRN (13:20)
[2020-07-03] MEDS: methylPREDNISolone SOD SUC 40 MG/1 ML VIAL IV SCH (20:20)
[2020-07-03] MEDS: LATANOPROST 0.005% OPH SOLN 2.5 ML BOTTLE BOTH EYES SCH (20:29)
[2020-07-04] MEDS: ALBUTEROL/IPRATROPIUM 3 ML NEB RESP TX SCH ×3 (00:29→14:42)
[2020-07-04 04:42] LABS: Hematocrit 37.2 VOL% (35.7-47.0); Hemoglobin 11.6 GM/DL (12.0-16.0); Immature Granulocytes % 0.5 %; Immature Granulocytes Absolute 0.02 #; Lymphocytes # 0.3 10*3/uL (1.4-4.0); Lymphocytes % 7.5 % (21.3-54.2); Mean Corpuscular HGB Conc 31.2 GM/DL (32-36); Mean Platelet Volume 9.9 FL (9.6-12.0); Monocytes % 4.1 % (1.7-12.7); Neutrophils % 87.9 % (38.7-73.9); Platelet Count 217 T/CUMM (130-400); Red Blood Count 4.18 MC/CUMM (3.8-5.5); Red Cell Distribution Width 16.9 % (9.3-17.3); White Blood Count 4.4 T/CUMM (4-12)
[2020-07-04 05:08] LABS: Calcium 9.1 MG/DL (8.5-10.1); Potassium 4.1 MMOL/L (3.5-5.1)
[2020-07-04] MEDS: INSULIN LISPRO 100 UNIT/ML SUBCUT SCH ×2 (07:12→11:35)
[2020-07-04] MEDS: methylPREDNISolone SOD SUC 40 MG/1 ML VIAL IV SCH (08:04)
[2020-07-04] MEDS: carvediloL 25 MG TABLET PO SCH (08:04)
[2020-07-04] MEDS: CHOLECALCIFEROL 1,000 UNIT TABLET PO SCH (08:04)
[2020-07-04] MEDS: SPIRONOLACTONE 25 MG TABLET PO SCH (08:05)
[2020-07-04] MEDS: ROSUVASTATIN 20 MG TABLET PO SCH (08:05)
[2020-07-04] MEDS: ASPIRIN CHEW 81 MG TABLET PO SCH (08:05)
[2020-07-04] MEDS: ZINC GLUCONATE 50 MG TABLET PO SCH (08:05)
[2020-07-04] MEDS: FERROUS SULFATE 325 MG TABLET PO SCH (08:05)
[2020-07-04] MEDS ORDERED: BUMETANIDE 1 MG/4 ML VIAL IV SCH (09:00)
[2020-07-04] MEDS ORDERED: PANTOPRAZOLE 40 MG TABLET PO SCH (09:00)
[2020-07-04] MEDS: ENOXAPARIN 40 MG/0.4 ML SYRINGE SUBCUT SCH (14:42)
== END 2020-07-04 13:35 | disposition home health service (06) | DRG 291 ==
LOC: N.ED 10:28 → N.EDINP 12:41 → SUATTDRO 12:41 → N.CC 13:54
PROVIDERS: ADMIT Internal Medicine; ATTEND Internal Medicine